=== PATIENT | male | born 1955 | race Caucasian/White ===

== ENCOUNTER 2022-08-08 17:46 | Observation (INO) ==
--- NOTE | 2022-08-08 18:31 | Emergency Department Note ---
Impression & Plan Vertebral artery stenosis, Cerebrovascular accident, Dizziness ED Provider Note NAME: CHEO DU AGE: 67 SEX: M : 1955 ARRIVES VIA: Walk-In INFORMANT: Patient ED PROVIDER(S): Alex Pink DO CHIEF COMPLAINT: dizzy, FRANCO and paraesthesia HPI: Patient is a 67-year-old male with a past medical history of multiple strokes who presents the ER for left arm paresthesias which started about 4 to 5 days ago. It goes up to the left elbow. He notes that today he started having some dizziness and some blurry vision bilaterally. He admits to a headache as well. He has some paresthesias periorally. No chest pain or shortness of breath. No nausea, vomiting, or diarrhea. No dysuria, urgency, or frequency. No other exacerbating or remitting factors. He does take Coumadin. ROS: See above HPI for pertinent positives & negatives. A total of 10 systems reviewed and were otherwise negative. PAST MEDICAL HISTORY:See Below PAST SURGICAL HISTORY:See Below FAMILY HISTORY:See Below SOCIAL HISTORY:See Below HOME MEDICATIONS:See Below ALLERGIES:See Below VITALS:See Below PHYSICAL EXAMINATION: GENERAL: Sitting up in bed, alert, well appearing, well nourished, no distress, non-toxic EYE EXAM: normal conjunctiva. PERRL and EOM's intact. OROPHARYNX: no exudate, no erythema, lips, buccal mucosa, and tongue normal and mucous membranes are moist NECK: supple, no nuchal rigidity, no adenopathy, non-tender LUNGS: Clear to auscultation. Normal chest wall mechanics HEART: no murmurs, S1 normal and S2 normal ABDOMEN: abdomen soft, non-tender, normo-active bowel sounds, no masses, no rebound or guarding. UPPER EXTREMITIES: upper extremities are grossly normal. LOWER EXTREMITIES: No pitting edema. NEURO EXAM: Normal sensorium, cranial nerves II-XII intact, normal speech, no weakness of arms, no weakness of legs. No drift. Finger to nose intact. Gross sensation intact. [id number] intact. Rapid alternating movements of upper extremities intact MEDICAL DECISION MAKING: Patient is a 67-year-old male who presents the ER for left arm paresthesias which is been present for the past 4 to 5 days associated with a headache and some dizziness. IV was established blood work was obtained. Labs show no significant leukocytosis or anemia. INR was therapeutic at 2.8. BMP along LFTs bilirubin was fairly unremarkable. Troponin was negative. COVID was negative. CTAs of the head neck as well as noncontrast of the head showed high-grade stenosis of the right vertebral artery. This was discussed with Dr. Kim from [facility]. Stroke alert was not called symptoms of been present for the past 4 to 5 days and he is on Coumadin. [facility] recommends admission and medical therapy and maximizing treatment. Allow for permissive hypertension with systolics of 180s. Recommends holding on Plavix. Will need MRI. If any new or worsening symptoms or neurology has any questions they recommended contacting [facility] or Dr. Barfield from [place] tomorrow as this may be in the future amenable to intervention if he is symptomatic or has new symptoms. Not need to be transferred tonight. Discussed with Dr. Allen for admission and further evaluation. Triage Nursing notes reviewed. Limited review of prior medical records performed Vital Signs: reviewed and remarkable for HTN Differential diagnosis: Differential Diagnosis includes but is not limited to ischemic Stroke, hemorrhagic stroke, bells palsy, mass, neoplasm, migraine headache, seizure, subarachnoid hemorrhage, TIA, and transient global amnesia. ER treatment provided: See below Diagnostics interpreted by me: ECG: Suspect cardiac rate of 53 Normal axis No PVCs noted QTC 412 Cardiac Monitoring: An order was placed for continuous cardiac monitoring. The monitor shows a rate of 55 with sinus rhythm. Laboratory studies: As stated above and show below. Imaging studies: CTs as described above Consultation(s): Discussed with [facility] as described above CTs as described above Procedures: none Critical Care: None Past Med/Surg History Social History Smoking Status: Never smoker Feels Safe at Home: Yes Allergies Allergies Allergy/AdvReac Type Severity Reaction Status Date / Time No Known Allergies Allergy Unverified 05/30/16 19:42 Home Meds Home Medications Medication Instructions Recorded Confirmed aspirin 81 mg tablet,delayed 81 mg PO QAM 08/08/22 08/08/22 release atorvastatin 40 mg tablet 40 mg PO HS 08/08/22 08/08/22 famotidine 20 mg tablet 20 mg PO BID 08/08/22 08/08/22 lisinopril 5 mg tablet 5 mg PO DAILY 08/08/22 08/08/22 warfarin 7.5 mg tablet 7.5 mg PO [id number] 08/08/22 08/08/22 warfarin 7.5 mg tablet 15 mg PO WK 08/08/22 08/08/22 Results & Data (ED) Vital Signs Vital Signs - 24 hr 08/08/22 18:01 08/08/22 20:30 Temperature 36.6 C Temperature Source Temporal Artery Scan Pulse Rate 55 L 62 Respiratory Rate 18 18 Respiratory Effort / Characteristics Non-Labored Respiratory Depth Normal Blood Pressure 164/91 H Blood Pressure Mean 115 Pulse Oximetry 98 Oxygen Delivery Method Room Air Room Air Sepsis Recent Fever Within 48 Hours No Sepsis New/Unexplained Change in Mental Status No Sepsis Action Taken by Nursing No Action Required Laboratory Data Result diagrams: 08/08/22 18:42 08/08/22 18:42 Lab Results 08/08/22 08/08/22 08/08/22 Range/Units 18:42 18:42 18:42 WBC 7.98 (4.8-10.8) K/ul RBC 5.09 (4.63-6.08) M/uL Hgb 14.9 (14.0-18.0) g/dl POC Hgb (14.0-18.0) g/dl Hct 45.3 (40.1-51.0) % POC Hct (42-52) % MCV 89.0 (80.0-100.0) fL MCH 29.3 (25.0-34.0) pg MCHC 32.9 (32.0-36.0) g/dL RDW Std Deviation 46.0 (36.4-46.3) fL RDW Coeff of Shlomo 14.1 (11.5-14.5) % Plt Count 183 (130-400) K/uL MPV 10.6 (9.4-12.4) fL Immature Gran % (Auto) 0.1 % Neut % (Auto) 70.6 % Lymph % (Auto) 18.8 % Starr % (Auto) 8.1 % Eos % (Auto) 1.6 % Baso % (Auto) 0.8 % Neut # (Auto) 5.63 (1.4-6.5) K/uL Lymph # (Auto) 1.50 (1.2-3.4) K/uL Starr # (Auto) 0.65 (0.24-0.82) K/uL Eos # (Auto) 0.13 (0-0.50) K/uL Baso # (Auto) 0.06 (0-0.2) K/uL Immature Gran # (Auto) 0.01 (0.00-0.02) K/uL PT 28.2 H (9.0-12.0) Seconds INR 2.8 H (0.9-1.1) APTT 41.2 H (21.0-31.0) Seconds PTT Ratio 1.5 POC Sodium (135-144) mmol/L Sodium 139 (136-145) mmol/L POC Potassium (3.3-5.0) mmol/L Potassium 4.2 (3.5-5.1) mmol/L POC Chloride (101-112) mmol/L Chloride 107 (98-107) mmol/L Carbon Dioxide 26 (21-32) mmol/L POC Total CO2 (24-31) mmol/L Anion Gap 6 (3-11) POC Anion Gap (16-25) mmol/L POC BUN (7-18) mg/dl BUN 18 (6-23) mg/dl Creatinine 1.31 (0.6-1.4) mg/dl POC Creatinine (0.6-1.3) mg/dl Est Cr Clr Drug Dosing 55.7 ml/min Est GFR ( Amer) 63.9 ml/min Est GFR (Non-Af Amer) 55.2 ml/min BUN/Creatinine Ratio 13.7 (10-20) Glucose 104 H (70-99(Fasting)) mg/dl POC Glucose (other) (70-99) mg/dl Calcium 9.5 (8.5-10.1) mg/dl POC Ioniz Calcium Caroline (1.12-1.32) mmol/l Magnesium 2.1 (1.7-2.4) mg/dl Total Bilirubin 0.8 (0.2-1.0) mg/dl AST 21 (13-39) U/L ALT 18 (7-52) U/L Alkaline Phosphatase 67 (34-104) U/L Troponin I High Sens 3.8 (0-20) pg/ml Total Protein 6.6 (6.0-8.3) gm/dl Albumin 4.0 (3.4-5.0) gm/dl Globulin 2.6 (2.5-4.0) gm/dl Albumin/Globulin Ratio 1.5 (0.9-2) SARS-CoV-2, RNA, NAAT (NEGATIVE) 08/08/22 08/08/22 Range/Units 18:59 19:44 WBC (4.8-10.8) K/ul RBC (4.63-6.08) M/uL Hgb (14.0-18.0) g/dl POC Hgb 15.0 (14.0-18.0) g/dl Hct (40.1-51.0) % POC Hct 44 (42-52) % MCV (80.0-100.0) fL MCH (25.0-34.0) pg MCHC (32.0-36.0) g/dL RDW Std Deviation (36.4-46.3) fL RDW Coeff of Shlomo (11.5-14.5) % Plt Count (130-400) K/uL MPV (9.4-12.4) fL Immature Gran % (Auto) % Neut % (Auto) % Lymph % (Auto) % Starr % (Auto) % Eos % (Auto) % Baso % (Auto) % Neut # (Auto) (1.4-6.5) K/uL Lymph # (Auto) (1.2-3.4) K/uL Starr # (Auto) (0.24-0.82) K/uL Eos # (Auto) (0-0.50) K/uL Baso # (Auto) (0-0.2) K/uL Immature Gran # (Auto) (0.00-0.02) K/uL PT (9.0-12.0) Seconds INR (0.9-1.1) APTT (21.0-31.0) Seconds PTT Ratio POC Sodium 140 (135-144) mmol/L Sodium (136-145) mmol/L POC Potassium 4.5 (3.3-5.0) mmol/L Potassium (3.5-5.1) mmol/L POC Chloride 106 (101-112) mmol/L Chloride (98-107) mmol/L Carbon Dioxide (21-32) mmol/L POC Total CO2 23 L (24-31) mmol/L Anion Gap (3-11) POC Anion Gap 16.0 (16-25) mmol/L POC BUN 22 H (7-18) mg/dl BUN (6-23) mg/dl Creatinine (0.6-1.4) mg/dl POC Creatinine 1.5 H (0.6-1.3) mg/dl Est Cr Clr Drug Dosing ml/min Est GFR ( Amer) ml/min Est GFR (Non-Af Amer) ml/min BUN/Creatinine Ratio (10-20) Glucose (70-99(Fasting)) mg/dl POC Glucose (other) 115 H (70-99) mg/dl Calcium (8.5-10.1) mg/dl POC Ioniz Calcium Caroline 1.19 (1.12-1.32) mmol/l Magnesium (1.7-2.4) mg/dl Total Bilirubin (0.2-1.0) mg/dl AST (13-39) U/L ALT (7-52) U/L Alkaline Phosphatase (34-104) U/L Troponin I High Sens (0-20) pg/ml Total Protein (6.0-8.3) gm/dl Albumin (3.4-5.0) gm/dl Globulin (2.5-4.0) gm/dl Albumin/Globulin Ratio (0.9-2) SARS-CoV-2, RNA, NAAT NEGATIVE (NEGATIVE) Administered Medications Sodium Chloride (Nss 1000ml) 1,000 mls @ 50 mls/hr IV .Q20H ONE Stop: 08/09/22 18:15 Last Admin: 08/08/22 22:31 Dose: 50 mls/hr Documented By: Discontinued Medications Acetaminophen (Acetaminophen 325 Mg Tab) 650 mg PO NOW STA Stop: 08/08/22 22:10 Last Admin: 08/08/22 22:32 Dose: 650 mg Documented By: Aspirin (Aspirin Chew 324 Mg) 324 mg PO NOW STA Stop: 08/08/22 18:33 Last Admin: 08/08/22 19:59 Dose: 324 mg Documented By: Sodium Chloride (Nss 1000ml) 1,000 mls @ 999 mls/hr IV .Q1H1M ONE Stop: 08/08/22 19:32 Last Infusion: 08/08/22 21:30 Dose: 0 mls/hr Documented By: Admin: 08/08/22 19:47 Dose: 999 mls/hr Documented By: Ioversol (Optiray 300 500ml) 119 ml IV ONCE ONE Stop: 08/08/22 19:16 Last Admin: 08/08/22 19:15 Dose: 119 ml Documented By: TEE Imaging Data Radiologist's Impression: Head CT 08/08/22 18:10 CT head/brain wo con CLINICAL HISTORY: 67 years-old Male with Stroke Like Symptoms. Acute strokelike symptoms. TECHNIQUE: Multiple axial CT images of the head were obtained without contrast. A dose lowering technique was utilized adhering to the principles of ALARA. CT DOSE: 1066.99 mGy.cm COMPARISON: CTA head and neck of same day FINDINGS: No acute intracranial hemorrhage, midline shift, intracranial mass, hydrocephalus, territorial ischemia or abnormal extra-axial collection. Involutional changes. White matter hypodensities suggestive of chronic microvascular ischemic disease. Cerebral vascular calcifications. The calvarium is intact. The paranasal sinuses, mastoid air cells, and middle ear cavities are clear. IMPRESSION: No acute intracranial abnormality. ACT 112: Negative or not required by law. The above report was generated using voice recognition software. It may contain grammatical, syntax or spelling errors. Electronically signed by: eTrry Frias M.D. 08/08/2022 7:46 PM Head CTA 08/08/22 18:10 CT angio neck with con, CT angio head w con CLINICAL HISTORY: 67 years-old Male with Stroke Like Symptoms. Acute strokelike symptoms COMPARISON STUDY: CTA had and neck 05/30/2016 TECHNIQUE: Following the IV administration of 119 mL of Optiray, CT angiogram of the head and neck was performed from the aortic arch to the skull apex. Images a re reviewed in the axial, sagittal, and coronal planes. 3-D MIPS images are created and assessed. IV contrast was administered without complication. All measurements were calculated based on NASCET criteria. A dose lowering technique was utilized adhering to the principles of ALARA. FINDINGS: Atherosclerosis of the thoracic aortic arch. Patency of the nominate and imaged subclavian arteries. The common carotid arteries are patent. Atherosclerosis of the carotid bulbs and proximal cervical segments of the internal carotid arteries without significant stenosis. Calcified plaque of the cavernous, clinoid and supraclinoid segments without high-grade stenosis. The middle and anterior cerebral arteries appear patent. No abnormal intracranial enhancement. The right vertebral artery is patent. Mild calcified plaque at its origin without significant stenosis. Short segment area of high-grade (greater than 70%) stenosis involves the distal V4 segment of the right vertebral artery just proximal to the confluence with the basilar artery on image 350. This finding is new from the 05/30/2016 study. There is an additional short segment focal area of high-grade stenosis (at least 70%) the mid basilar artery on image 375 which is also new from the 2016 study. There is only minimal trickle flow within portions of the diminutive left vertebral artery. No significant flow seen within the V4 segment left vertebral artery. These findings are unchanged from prior. Posterior cerebral arteries are patent. There is origin of the left posterior cerebral artery. The cerebral venous sinuses are patent. No pneumothorax. Severe pulmonary emphysema. Unremarkable soft tissues. Degenerative changes of the cervical spine. Mild mucosal thickening of the right maxillary sinus. Dental caries. IMPRESSION: 1. High-grade stenoses of the V4 segment right vertebral artery and mid basilar artery are new from 05/30/2016. 2. Diminutive left vertebral artery demonstrating areas of only minimal trickle flow is unchanged from the 05/30/2016 study. 3. Patent common and internal carotid arteries. 4. Pulmonary emphysema. ACT 112: Negative or not required by law. The above report was generated using voice recognition software. It may contain grammatical, syntax or spelling errors. Electronically signed by: Terry Frias M.D. 08/08/2022 7:46 PM Neck CTA 08/08/22 18:10 CT angio neck with con, CT angio head w con CLINICAL HISTORY: 67 years-old Male with Stroke Like Symptoms. Acute strokelike symptoms COMPARISON STUDY: CTA had and neck 05/30/2016 TECHNIQUE: Following the IV administration of 119 mL of Optiray, CT angiogram of the head and neck was performed from the aortic arch to the skull apex. Images are reviewed in the axial, sagittal, and coronal planes. 3-D MIPS images are created and assessed. IV contrast was administered without complication. All measurements were calculated based on NASCET criteria. A dose lowering technique was utilized adhering to the principles of ALARA. FINDINGS: Atherosclerosis of the thoracic aortic arch. Patency of the nominate and imaged subclavian arteries. The common carotid arteries are patent. Atherosclerosis of the carotid bulbs and proximal cervical segments of the internal carotid arteries without significant stenosis. Calcified plaque of the cavernous, clinoid and supraclinoid segments without high-grade stenosis. The middle and anterior cerebral arteries appear patent. No abnormal intracranial enhancement. The right vertebral artery is patent. Mild calcified plaque at its origin without significant stenosis. Short segment area of high-grade (greater than 70%) stenosis involves the distal V4 segment of the right vertebral artery just proximal to the confluence with the basilar artery on image 350. This finding is new from the 05/30/2016 study. There is an additional short segment focal area of high-grade stenosis (at least 70%) the mid basilar artery on image 375 which is also new from the 2016 study. There is only minimal trickle flow within portions of the diminutive left vertebral artery. No significant flow seen within the V4 segment left vertebral artery. These findings are unchanged from prior. Posterior cerebral arteries are patent. There is origin of the left posterior cerebral artery. The cerebral venous sinuses are patent. No pneumothorax. Severe pulmonary emphysema. Unremarkable soft tissues. Degenerative changes of the cervical spine. Mild mucosal thickening of the right maxillary sinus. Dental caries. IMPRESSION: 1. High-grade stenoses of the V4 segment right vertebral artery and mid basilar artery are new from 05/30/2016. 2. Diminutive left vertebral artery demonstrating areas of only minimal trickle flow is unchanged from the 05/30/2016 study. 3. Patent common and internal carotid arteries. 4. Pulmonary emphysema. ACT 112: Negative or not required by law. The above report was generated using voice recognition software. It may contain grammatical, syntax or spelling errors. Electronically signed by: Terry Frias M.D. 08/08/2022 7:46 PM Discharge Plan Visit Data Chief Complaint: TIA Symptoms Stated Complaint: NAUSEA, SWEATY, L SIDE NUMBNESS, STROKE HISTORY ED Provider: Alex Pink Discharge Problem: Vertebral artery stenosis, Cerebrovascular accident, Dizziness Forms Stand Alone Forms: My [facility] Prescriptions Prescriptions: No Action lisinopril 5 mg tablet 5 mg PO DAILY atorvastatin 40 mg tablet 40 mg PO HS aspirin [Aspir-Low] 81 mg Tablet,Delayed Release (Dr/Ec) 81 mg PO QAM famotidine 20 mg tablet 20 mg PO BID warfarin 7.5 mg tablet 7.5 mg PO [id number] Rx Instructions: TAKE 7.5 MG EVERY TUESDAY/TUESDAY/TUESDAY/TUESDAY/TUESDAY/TUESDAY. warfarin 7.5 mg tablet 15 mg PO WK Rx Instructions: TAKE TWO 7.5MG TABLETS EVERY TUESDAY. Referrals Referrals: PCP,NO [Physician] -
[2022-08-08] MEDS ORDERED: SODIUM CHLORIDE 0.9% 1000ML 1,000 ML IV ONE ×2 (18:32→22:16)
[2022-08-08] MEDS ORDERED: ASPIRIN CHEW 324 MG PO STA (18:32)
[2022-08-08 18:55] LABS: Basophils # (auto) 0.06 K/uL (0-0.2); Basophils % (auto) 0.8 %; Eosinophils # (auto) 0.13 K/uL (0-0.50); Eosinophils % (auto) 1.6 %; Hematocrit (blood only) 45.3 % (40.1-51.0); Hemoglobin 14.9 g/dl (14.0-18.0); Immature Granulocytes # (auto) 0.01 K/uL (0.00-0.02); Immature Granulocytes % (auto) 0.1 %; Lymphocytes % (auto) 18.8 %; Mean Corpuscular Hemoglobin 29.3 pg (25.0-34.0); Mean Corpuscular Hgb Conc 32.9 g/dL (32.0-36.0); Mean Platelet Volume 10.6 fL (9.4-12.4); Monocytes # (auto) 0.65 K/uL (0.24-0.82); Monocytes % (auto) 8.1 %; Neutrophils # (auto) 5.63 K/uL (1.4-6.5); Neutrophils % (auto) 70.6 %; Platelet Count 183 K/uL (130-400); RDW Coefficient of Variation 14.1 % (11.5-14.5); Red Blood Count 5.09 M/uL (4.63-6.08); White Blood Count 7.98 K/ul (4.8-10.8)
[2022-08-08 19:10] LABS: INR 2.8 (0.9-1.1); Partial Thromboplastin Ratio 1.5; Partial Thromboplastin Time 41.2 Seconds (21.0-31.0); Prothrombin Time 28.2 Seconds (9.0-12.0)
[2022-08-08 19:11] LABS: iSTAT Creatinine 1.5 mg/dl (0.6-1.3); iSTAT Ionized Calcium 1.19 mmol/l (1.12-1.32); iSTAT Potassium 4.5 mmol/L (3.3-5.0)
[2022-08-08] MEDS ORDERED: OPTIRAY 300 500mL IV ONE (19:15)
[2022-08-08 19:21] LABS: Albumin Globulin Ratio 1.5 (0.9-2); BUN Creatinine Ratio 13.7 (10-20); Bilirubin,Total 0.8 mg/dl (0.2-1.0); Calcium 9.5 mg/dl (8.5-10.1); Creatinine Clr Calc Pharmacy 55.7 ml/min; Est GFR (African American) 63.9 ml/min; Est GFR (Non-African American) 55.2 ml/min; Globulin 2.6 gm/dl (2.5-4.0); Magnesium 2.1 mg/dl (1.7-2.4); Potassium 4.2 mmol/L (3.5-5.1); Total Protein 6.6 gm/dl (6.0-8.3)
[2022-08-08 19:22] LABS: Troponin I High Sensitivity 3.8 pg/ml (0-20)
--- NOTE | 2022-08-08 19:47 | CT Scan Report ---
CT angio neck with con, CT angio head w con CLINICAL HISTORY: 67 years-old Male with Stroke Like Symptoms. Acute strokelike symptoms COMPARISON STUDY: CTA had and neck 05/30/2016 TECHNIQUE: Following the IV administration of 119 mL of Optiray, CT angiogram of the head and neck wa s performed from the aortic arch to the skull apex. Images are reviewed in the axial, sagittal, and c oronal planes. 3-D MIPS images are created and assessed. IV contrast was administered without complic ation. All measurements were calculated based on NASCET criteria. A dose lowering technique was util ized adhering to the principles of ALARA. FINDINGS: Atherosclerosis of the thoracic aortic arch. Patency of the nominate and imaged subclavian arteries. The common carotid arteries are patent. Atherosclerosis of the carotid bulbs and proximal cervical se gments of the internal carotid arteries without significant stenosis. Calcified plaque of the caverno us, clinoid and supraclinoid segments without high-grade stenosis. The middle and anterior cerebral a rteries appear patent. No abnormal intracranial enhancement. The right vertebral artery is patent. Mi ld calcified plaque at its origin without significant stenosis. Short segment area of high-grade (gre ater than 70%) stenosis involves the distal V4 segment of the right vertebral artery just proximal to the confluence with the basilar artery on image 350. This finding is new from the 05/30/2016 study. Th ere is an additional short segment focal area of high-grade stenosis (at least 70%) the mid basilar a rtery on image 375 which is also new from the 2016 study. There is only minimal trickle flow within p ortions of the diminutive left vertebral artery. No significant flow seen within the V4 segment left vertebral artery. These findings are unchanged from prior. Posterior cerebral arteries are patent. Th ere is origin of the left posterior cerebral artery. The cerebral venous sinuses are patent. No pneumothorax. Severe pulmonary emphysema. Unremarkable soft tissues. Degenerative changes of the c ervical spine. Mild mucosal thickening of the right maxillary sinus. Dental caries. IMPRESSION: 1. High-grade stenoses of the V4 segment right vertebral artery and mid basilar artery are new from . 2. Diminutive left vertebral artery demonstrating areas of only minimal trickle flow is unchanged fro m the 05/30/2016 study. 3. Patent common and internal carotid arteries. 4. Pulmonary emphysema. ACT 112: Negative or not required by law. The above report was generated using voice recognition software. It may contain grammatical, syntax o r spelling errors. Electronically signed by: Terry Frias M.D. 08/08/2022 7:46 PM
--- NOTE | 2022-08-08 19:47 | CT Scan Report ---
CT head/brain wo con CLINICAL HISTORY: 67 years-old Male with Stroke Like Symptoms. Acute strokelike symptoms. TECHNIQUE: Multiple axial CT images of the head were obtained without contrast. A dose lowering tech nique was utilized adhering to the principles of ALARA. CT DOSE: 1066.99 mGy.cm COMPARISON: CTA head and neck of same day FINDINGS: No acute intracranial hemorrhage, midline shift, intracranial mass, hydrocephalus, territorial ischem ia or abnormal extra-axial collection. Involutional changes. White matter hypodensities suggestive of chronic microvascular ischemic disease. Cerebral vascular calcifications. The calvarium is intact. The paranasal sinuses, mastoid air cells, and middle ear cavities are clear . IMPRESSION: No acute intracranial abnormality. ACT 112: Negative or not required by law. The above report was generated using voice recognition software. It may contain grammatical, syntax o r spelling errors. Electronically signed by: Terry Frias M.D. 08/08/2022 7:46 PM
[2022-08-08] MEDS ORDERED: ACETAMINOPHEN 325 MG TAB PO STA (22:09)
--- NOTE | 2022-08-08 22:10 | History & Physical Report ---
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 Permissive hypertension for now MRI, TTE for additional stroke work-up Neurology consult Re: Recurrent TIA Further management pending Neurology eval Update lipid profile and hemoglobin A1c Patient counseled regarding patient confined at [facility] July 2019 need for regular outpatient follow-up with neurologist given recurrent events. DVT prophylaxis. Coumadin INR goal between 2 and 3 Full code Patient requesting updates from providers. Ms. Jessica Rudolph, contact #[phone]. Text document was generated using CHORD voice recognition software. It may contain grammatical or spelling errors. Kindly contact undersigned for clarification of any documentation item in question. History of Present Illness Chief Complaint: Strokelike symptoms Primary Care Provider: Jorge Araya History obtained from patient and records. Medical history significant for recurrent CVA/TIA on Coumadin, PVD, AAA status post surgery, hypertension, hyperlipidemia, COPD, past tobacco abuse. 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 Patient transferred to [facility] as per neurologist recommendation. Patient has had 4 strokes/mini strokes since 2016 as per patient. Patient confined at [facility] July 2019 for TIA symptoms attributed to basilar artery occlusion presenting as paresthesias, visual changes and gait difficulty. Patient was on aspirin and Plavix at time of admission. MRI did not show acute stroke. 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 Occlusion thought to be chronic process as per documentation. Given patient's increasing frequency of posterior circulation symptoms on dual antiplatelet therapy, patient started on Coumadin along with dual antiplatelet Rx. Plavix eventually discontinued outpatient, timing of which cannot be called by patient. Recent stroke was last year leading to confinement at [facility]. Patient has not followed up with his [place] neurologist since last year's confinement. Patient has not been feeling well since last week. Some neck soreness which patient attributed to installing a special door in his basement. 5 days ago, patient noted left upper extremity tingling. Today, patient noted dizziness described as imbalance and transient blurred vision on both eyes. Achy frontal headache symptoms. Episode somewhat reminiscent of stroke episode from 2019. Patient compliant with medications. No unusual stress at home. Aspirin administered at the ER. Currently, patient symptoms all resolved except for neck discomfort. [facility] stroke specialist recommended medical management at [facility] for now. 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 Allergies Allergy/AdvReac Type Severity Reaction Status Date / Time No Known Allergies Allergy Unverified 05/30/16 19:42 Home Medications Medication Instructions Recorded Confirmed Type aspirin 81 mg tablet,delayed 81 mg PO QAM 08/08/22 08/08/22 History release atorvastatin 40 mg tablet 40 mg PO HS 08/08/22 08/08/22 History famotidine 20 mg tablet 20 mg PO BID 08/08/22 08/08/22 History lisinopril 5 mg tablet 5 mg PO DAILY 08/08/22 08/08/22 History warfarin 7.5 mg tablet 7.5 mg PO [id number] 08/08/22 08/08/22 History warfarin 7.5 mg tablet 15 mg PO WK 08/08/22 08/08/22 History Past Med/Surg History Social History Smoking Status: Former smoker Second Hand Exposure: No; Do You Dip or Chew Tobacco: No; Tobacco Cessation Education Requested by Patient: No Hx Alcohol Use: Yes Alcohol type: beer Hx Substance Use: No Preferred Language: Mohawk Communication Ability: Effective All Source Intelligence Required: No Beliefs That Will Affect Care: None Current Living Situation: Spouse Other Information That Helps Us Care for You: No Feels Safe at Home: Yes Safety Concerns: Feels Safe At This Time Assistive Devices: Glasses Review of Systems Review of Systems: As per HPI, all other systems reviewed and negative Physical Exam 2 Physical Exam: GENERAL: Comfortable, pleasant, no respiratory distress SKIN: Normal color, warm HEENT: Alopecia, bespectacled, pink palpebral conjunctivae, no ptosis, moist buccal mucosa NECK : Supple, minimal cervical tenderness CHEST : CTA, no tenderness HEART : Bradycardic, no obvious murmurs ABDOMEN: Some distention, nontender EXTREMITIES : No LE swelling/tenderness, no other conspicuous deformities noted NEUROLOGIC : Coherent, no facial asymmetry, no other gross focality Results & Data Results & Data ([facility]) Vital Signs (Past 12 Hours) Vital Signs Temp Pulse Resp BP Pulse Ox O2 Del Method 08/08/22 18:01 36.6 C 55 L 18 164/91 H 98 Room Air Laboratory Results Laboratory Results WBC 7.98 K/ul (4.8-10.8) 08/08/22 18:42 RBC 5.09 M/uL (4.63-6.08) 08/08/22 18:42 Hgb 14.9 g/dl (14.0-18.0) 08/08/22 18:42 POC Hgb 15.0 g/dl (14.0-18.0) 08/08/22 18:59 Hct 45.3 % (40.1-51.0) 08/08/22 18:42 POC Hct 44 % (42-52) 08/08/22 18:59 MCV 89.0 fL (80.0-100.0) 08/08/22 18:42 MCH 29.3 pg (25.0-34.0) 08/08/22 18:42 MCHC 32.9 g/dL (32.0-36.0) 08/08/22 18:42 RDW Std Deviation 46.0 fL (36.4-46.3) 08/08/22 18:42 RDW Coeff of Shlomo 14.1 % (11.5-14.5) 08/08/22 18:42 Plt Count 183 K/uL (130-400) 08/08/22 18:42 MPV 10.6 fL (9.4-12.4) 08/08/22 18:42 Immature Gran % (Auto) 0.1 % 08/08/22 18:42 Neut % (Auto) 70.6 % 08/08/22 18:42 Lymph % (Auto) 18.8 % 08/08/22 18:42 Nolan % (Auto) 8.1 % 08/08/22 18:42 Eos % (Auto) 1.6 % 08/08/22 18:42 Baso % (Auto) 0.8 % 08/08/22 18:42 Neut # (Auto) 5.63 K/uL (1.4-6.5) 08/08/22 18:42 Lymph # (Auto) 1.50 K/uL (1.2-3.4) 08/08/22 18:42 Nolan # (Auto) 0.65 K/uL (0.24-0.82) 08/08/22 18:42 Eos # (Auto) 0.13 K/uL (0-0.50) 08/08/22 18:42 Baso # (Auto) 0.06 K/uL (0-0.2) 08/08/22 18:42 Immature Gran # (Auto) 0.01 K/uL (0.00-0.02) 08/08/22 18:42 PT 28.2 Seconds (9.0-12.0) H 08/08/22 18:42 INR 2.8 (0.9-1.1) H 08/08/22 18:42 APTT 41.2 Seconds (21.0-31.0) H 08/08/22 18:42 PTT Ratio 1.5 08/08/22 18:42 POC Sodium 140 mmol/L (135-144) 08/08/22 18:59 Sodium 139 mmol/L (136-145) 08/08/22 18:42 POC Potassium 4.5 mmol/L (3.3-5.0) 08/08/22 18:59 Potassium 4.2 mmol/L (3.5-5.1) 08/08/22 18:42 POC Chloride 106 mmol/L (101-112) 08/08/22 18:59 Chloride 107 mmol/L (98-107) 08/08/22 18:42 Carbon Dioxide 26 mmol/L (21-32) 08/08/22 18:42 POC Total CO2 23 mmol/L (24-31) L 08/08/22 18:59 Anion Gap 6 (3-11) 08/08/22 18:42 POC Anion Gap 16.0 mmol/L (16-25) 08/08/22 18:59 POC BUN 22 mg/dl (7-18) H 08/08/22 18:59 BUN 18 mg/dl (6-23) 08/08/22 18:42 Creatinine 1.31 mg/dl (0.6-1.4) 08/08/22 18:42 POC Creatinine 1.5 mg/dl (0.6-1.3) H 08/08/22 18:59 Est Cr Clr Drug Dosing 55.7 ml/min 08/08/22 18:42 Est GFR ( Amer) 63.9 ml/min 08/08/22 18:42 Est GFR (Non-Af Amer) 55.2 ml/min 08/08/22 18:42 BUN/Creatinine Ratio 13.7 (10-20) 08/08/22 18:42 Glucose 104 mg/dl (70-99(Fasting)) H 08/08/22 18:42 POC Glucose (other) 115 mg/dl (70-99) H 08/08/22 18:59 Calcium 9.5 mg/dl (8.5-10.1) 08/08/22 18:42 POC Ioniz Calcium Caroline 1.19 mmol/l (1.12-1.32) 08/08/22 18:59 Magnesium 2.1 mg/dl (1.7-2.4) 08/08/22 18:42 Total Bilirubin 0.8 mg/dl (0.2-1.0) 08/08/22 18:42 AST 21 U/L (13-39) 08/08/22 18:42 ALT 18 U/L (7-52) 08/08/22 18:42 Alkaline Phosphatase 67 U/L (34-104) 08/08/22 18:42 Troponin I High Sens 3.8 pg/ml (0-20) 08/08/22 18:42 Total Protein 6.6 gm/dl (6.0-8.3) 08/08/22 18:42 Albumin 4.0 gm/dl (3.4-5.0) 08/08/22 18:42 Globulin 2.6 gm/dl (2.5-4.0) 08/08/22 18:42 Albumin/Globulin Ratio 1.5 (0.9-2) 08/08/22 18:42 SARS-CoV-2, RNA, NAAT NEGATIVE (NEGATIVE) 08/08/22 19:[address] 08/08/22 18:10 CT head/brain wo con CLINICAL HISTORY: 67 years-old Male with Stroke Like Symptoms. Acute strokelike symptoms. TECHNIQUE: Multiple axial CT images of the head were obtained without contrast. A dose lowering technique was utilized adhering to the principles of ALARA. CT DOSE: 1066.99 mGy.cm COMPARISON: CTA head and neck of same day FINDINGS: No acute intracranial hemorrhage, midline shift, intracranial mass, hydrocephalus, territorial ischemia or abnormal extra-axial collection. Involutional changes. White matter hypodensities suggestive of chronic microvascular ischemic disease. Cerebral vascular calcifications. The calvarium is intact. The paranasal sinuses, mastoid air cells, and middle ear cavities are clear. IMPRESSION: No acute intracranial abnormality. ACT 112: Negative or not required by law. The above report was generated using voice recognition software. It may contain grammatical, syntax or spelling errors. Electronically signed by: Terry Frias M.D. 08/08/2022 7:46 PM Head CTA 08/08/22 18:10 CT angio neck with con, CT angio head w con CLINICAL HISTORY: 67 years-old Male with Stroke Like Symptoms. Acute s trokelike symptoms COMPARISON STUDY: CTA had and neck 05/30/2016 TECHNIQUE: Following the IV administration of 119 mL of Optiray, CT angiogram of the head and neck was performed from the aortic arch to the skull apex. Images are reviewed in the axial, sagittal, and coronal planes. 3-D MIPS images are created and assessed. IV contrast was administered without complication. All measurements were calculated based on NASCET criteria. A dose lowering technique was utilized adhering to the principles of ALARA. FINDINGS: Atherosclerosis of the thoracic aortic arch. Patency of the nominate and imaged subclavian arteries. The common carotid arteries are patent. Atherosclerosis of the carotid bulbs and proximal cervical segments of the internal carotid arteries without significant stenosis. Calcified plaque of the cavernous, clinoid and supraclinoid segments without high-grade stenosis. The middle and anterior cerebral arteries appear patent. No abnormal intracranial enhancement. The right vertebral artery is patent. Mild calcified plaque at its origin without significant stenosis. Short segment area of high-grade (greater than 70%) stenosis involves the distal V4 segment of the right vertebral artery just proximal to the confluence with the basilar artery on image 350. This finding is new from the 05/30/2016 study. There is an additional short segment focal area of high-grade stenosis (at least 70%) the mid basilar artery on image 375 which is also new from the 2016 study. There is only minimal trickle flow within portions of the diminutive left vertebral artery. No significant flow seen within the V4 segment left vertebral artery. These findings are unchanged from prior. Posterior cerebral arteries are patent. There is origin of the left posterior cerebral artery. The cerebral venous sinuses are patent. No pneumothorax. Severe pulmonary emphysema. Unremarkable soft tissues. Degenerative changes of the cervical spine. Mild mucosal thickening of the right maxillary sinus. Dental caries. IMPRESSION: 1. High-grade stenoses of the V4 segment right vertebral artery and mid basilar artery are new from 05/30/2016. 2. Diminutive left vertebral artery demonstrating areas of only minimal trickle flow is unchanged from the 05/30/2016 study. 3. Patent common and internal carotid arteries. 4. Pulmonary emphysema. ACT 112: Negative or not required by law. The above report was generated using voice recognition software. It may contain grammatical, syntax or spelling errors. Electronically signed by: Terry Frias M.D. 08/08/2022 7:46 PM Neck CTA 08/08/22 18:10 CT angio neck with con, CT angio head w con CLINICAL HISTORY: 67 years-old Male with Stroke Like Symptoms. Acute strokelike symptoms COMPARISON STUDY: CTA had and neck 05/30/2016 TECHNIQUE: Following the IV administration of 119 mL of Optiray, CT angiogram of the head and neck was performed from the aortic arch to the skull apex. Images are reviewed in the axial, sagittal, and coronal planes. 3-D MIPS images are created and assessed. IV contrast was administered without complication. All measurements were calculated based on NASCET criteria. A dose lowering technique was utilized adhering to the principles of ALARA. FINDINGS: Atherosclerosis of the thoracic aortic arch. Patency of the nominate and imaged subclavian arteries. The common carotid arteries are patent. Atherosclerosis of the carotid bulbs and proximal cervical segments of the internal carotid arteries without significant stenosis. Calcified plaque of the cavernous, clin oid and supraclinoid segments without high-grade stenosis. The middle and anterior cerebral arteries appear patent. No abnormal intracranial enhancement. The right vertebral artery is patent. Mild calcified plaque at its origin without significant stenosis. Short segment area of high-grade (greater than 70%) stenosis involves the distal V4 segment of the right vertebral artery just proximal to the confluence with the basilar artery on image 350. This finding is new from the 05/30/2016 study. There is an additional short segment focal area of high-grade stenosis (at least 70%) the mid basilar artery on image 375 which is also new from the 2016 study. There is only minimal trickle flow within portions of the diminutive left vertebral artery. No significant flow seen within the V4 segment left vertebral artery. These findings are unchanged from prior. Posterior cerebral arteries are patent. There is origin of the left posterior cerebral artery. The cerebral venous sinuses are patent. No pneumothorax. Severe pulmonary emphysema. Unremarkable soft tissues. Degenerative changes of the cervical spine. Mild mucosal thickening of the right maxillary sinus. Dental caries. IMPRESSION: 1. High-grade stenoses of the V4 segment right vertebral artery and mid basilar artery are new from 05/30/2016. 2. Diminutive left vertebral artery demonstrating areas of only minimal trickle flow is unchanged from the 05/30/2016 study. 3. Patent common and internal carotid arteries. 4. Pulmonary emphysema. ACT 112: Negative or not required by law. The above report was generated using voice recognition software. It may contain grammatical, syntax or spelling errors. Electronically signed by: Terry Frias M.D. 08/08/2022 7:46 PM Diagnostic Findings EKG as per my interpretation :Rate 55, sinus bradycardia, normal axis, no ischemia
[2022-08-09] MEDS ORDERED: oxyCODONE HCL IR 5 MG TAB (IMMEDIATE RELEASE) PO PRN (02:43)
[2022-08-09] MEDS ORDERED: PHARMACIST DISCHARGE MED REC CONSULT PRN (02:43)
[2022-08-09] MEDS ORDERED: PROMETHAZINE HCL 12.5 MG in SODIUM CHLORIDE 0.9% 50 ML IV PRN (02:43)
[2022-08-09] MEDS ORDERED: ATORVASTATIN 40 MG TAB PO SCH (02:43)
[2022-08-09] MEDS ORDERED: LORazepam 0.5 MG TAB PO PRN (02:43)
[2022-08-09] MEDS ORDERED: ACETAMINOPHEN 325 MG TAB PO PRN (02:43)
[2022-08-09] MEDS ORDERED: CLOPIDOGREL BISULFATE 75 MG TAB PO SCH (03:15)
[2022-08-09 06:34] LABS: Basophils # (auto) 0.05 K/uL (0-0.2); Basophils % (auto) 0.8 %; Eosinophils # (auto) 0.19 K/uL (0-0.50); Eosinophils % (auto) 3.1 %; Hematocrit (blood only) 41.7 % (40.1-51.0); Hemoglobin 13.6 g/dl (14.0-18.0); Immature Granulocytes # (auto) 0.01 K/uL (0.00-0.02); Immature Granulocytes % (auto) 0.2 %; Lymphocytes # (auto) 1.96 K/uL (1.2-3.4); Lymphocytes % (auto) 31.9 %; Mean Corpuscular Hemoglobin 29.3 pg (25.0-34.0); Mean Corpuscular Hgb Conc 32.6 g/dL (32.0-36.0); Mean Corpuscular Volume 89.9 fL (80.0-100.0); Mean Platelet Volume 10.9 fL (9.4-12.4); Monocytes # (auto) 0.69 K/uL (0.24-0.82); Monocytes % (auto) 11.2 %; Neutrophils # (auto) 3.24 K/uL (1.4-6.5); Neutrophils % (auto) 52.8 %; Platelet Count 165 K/uL (130-400); RDW Coefficient of Variation 14.3 % (11.5-14.5); RDW Standard Deviation 47.3 fL (36.4-46.3); Red Blood Count 4.64 M/uL (4.63-6.08); White Blood Count 6.14 K/ul (4.8-10.8)
[2022-08-09 07:00] LABS: BUN Creatinine Ratio 16.7 (10-20); Calcium 8.9 mg/dl (8.5-10.1); Creatinine Clr Calc Pharmacy 65.1 ml/min; Est GFR (African American) 75.6 ml/min; Est GFR (Non-African American) 65.3 ml/min; Potassium 4.3 mmol/L (3.5-5.1)
[2022-08-09 07:03] LABS: Estimated Average Glucose 123 mg/dl; Hemoglobin A1C 5.9 % (4.5-5.6); INR 3.1 (0.9-1.1); Prothrombin Time 30.9 Seconds (9.0-12.0)
[2022-08-09] MEDS ORDERED: ASPIRIN 81 MG ECTAB PO SCH (09:00)
[2022-08-09] MEDS ORDERED: FAMOTIDINE 20 MG TAB PO SCH (09:00)
--- NOTE | 2022-08-09 09:49 | Magnetic Resonance Report ---
MRI OF THE BRAIN WITHOUT CONTRAST CLINICAL HISTORY: Transient ischemic attack. Left arm paresthesias. COMPARISON STUDY: Head CT and CTA of the head August 08, 2022. TECHNIQUE: Utilizing a 1.5 Suzan magnet and dedicated coil, multiplanar, multiecho imaging of the bra in was performed without IV contrast. FINDINGS: There are no foci of restricted diffusion to suggest acute infarct. No acute intracranial h emorrhage, midline shift or mass effect is present. Ventricular system is unremarkable. Basal cistern s are patent. Flow-voids for the major intracranial vessels are present. No intracranial masses ident ified on this unenhanced exam. White matter T2 hyperintense foci favor mild small vessel disease. Eloy varial signal is within normal limits. IMPRESSION: No acute intracranial findings. ACT 112: Negative or not required by law. Electronically signed by: Keith Echevarria M.D. 08/09/2022 9:48 AM
--- NOTE | 2022-08-09 12:18 | Neurology Consultation ---
Date of Consultation August 09, 2022 Assessment & Plan (1) Vertebral basilar insufficiency: (2) Vertebral artery stenosis: (3) Basilar artery stenosis: (4) Hypertension: Plan this patient had an episode of bilateral blurry vision, vertigo and lightheadedness, left upper extremity tingling, and nausea August 08. He has had similar episodes in the past. CT angiography of the head and neck revealed significant right vertebral and mid basilar artery stenosis, new compared to his 1st stroke like event May of 2016. The left vertebral is small in diameter, which is the same as 2016. He has been on warfarin and 81 mg aspirin since his original event May of 2016. On neurologic examination currently has no focal findings, meningeal signs, or encephalopathy. Subjectively he is asymptomatic and back to baseline MRI of the brain showed no new stroke but he does have some old mild nonspecific small vessel ischemic disease. The patient has some neck pain and some recent tingling in the left upper extremity without other symptoms. This could be a cervical radiculopathy. Overall, therefore, I believe this patient had vertebrobasilar insufficiency from his vascular stenoses and likely has had these symptoms stereotypically in the past. Recommendations: 1. Consider switching 81 mg aspirin to 75 mg clopidogrel daily. Continue warfarin as before. clopidogrel may do a better job than aspirin to preventing symptoms and might actually open up some of the stenoses Over time. 2. Continue atorvastatin current dose. There is no indication based on his lipid parameters to increase this dose. 3. Control blood pressure as you are doing, aiming for a mean arterial pressure of 95-100. 4. consider EMG nerve conduction studies of the left upper extremity as an outpatient to evaluate for radiculopathy. 5. I can follow this patient as an outpatient ( to 3 weeks with PA in the office) Overall, I spent a total of 90 minutes with this case including review of records, review of MRI films, direct evaluation of the patient at bedside, and discussion of the case with the patient and RN at bedside, and Dr. Gomez including differential diagnosis and treatment options. History of Present Illness Reason for Consultation: Patient is a 67-year-old, who I was asked to see at the request of Dr. Ram, for neurologic consultation regarding possible stroke. Requesting Physician: Dr. Ram Attending Physician: Sienna Gomez MD History of Present Illness This patient has a history of previous stroke May 30, 2016. He had the sudden onset of nausea, vomiting, diaphoresis, dizziness and left upper extremity tingl ing. The symptoms have been occurring on and off for several weeks lasting minutes at a time. He felt weak in general but had no focal weakness. CT scan of the head showed no acute change. 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 He had emphysema on lungs. CTA of the head neck revealed normal carotid arteries, a widely patent right vertebral artery and a small thrombosed left vertebral artery. There were no aneurysms. He was sent to [facility] apparently was put on warfarin and 81 mg aspirin, which she has been on ever since. Over the last 4 years he has had a few episodes including 2 back to back about a year ago consisting of left upper extremity numbness and tingling, blurry vision and some lightheadedness and vertigo. Apparently he did not go to the emergency room for these. He has a history of dyslipidemia on 40 mg HR a statin as well as hypertension on lisinopril. On August 08, he had finished sitting and watching the [employer] on TV, when around 5:00 p.m., at the end of the game, he had the sudden onset of blurry vision in both eyes, numbness and tingling in his left upper extremity from the elbow to the hand, and a spinning lightheaded sensation. He had nausea without vomiting. He had no tinnitus or hearing loss. He arrived to the emergency room at 6:01 p.m. with a temperature 36.6, pulse 55 and regular, respiratory rate 18, blood pressure 164/91, and O2 saturation 98%. His neurologic examination was nonfocal with no meningeal signs or encephalopathy, but he did have a mild headache. CBC was unremarkable. Chem profile was unremarkable. CT scan of the head was unremarkable. CT angiography of the head neck revealed high-grade stenosis in the right V4 segment and mid basilar artery. There was a diminished left vertebral artery as before. The internal carotid arteries were unremarkable. MRI of the brain showed mild old small vessel ischemia but no acute stroke. I reviewed these films. Echocardiogram revealed no significant abnormalities. Hemoglobin A1c was 5.9 and total cholesterol is 120. Triglycerides were 90. Today the patient feels asymptomatic with no dizziness, vision issues, headache, numbness or tingling, or other issues. 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 he does a lot a heavy lifting From time to time in his jobs. He does have some neck pain. He has had some numbness and tingling intermittently in his left upper extremity for 4-5 days on and off lasting an hour at a time. Allergies Allergy/AdvReac Type Severity Reaction Status Date / Time No Known Allergies Allergy Unverified 05/30/16 19:42 Home Medications Medication Instructions Recorded Confirmed Type aspirin 81 mg tablet,delayed 81 mg PO QAM 08/08/22 08/08/22 History release atorvastatin 40 mg tablet 40 mg PO HS 08/08/22 08/08/22 History famotidine 20 mg tablet 20 mg PO BID 08/08/22 08/08/22 History lisinopril 5 mg tablet 5 mg PO DAILY 08/08/22 08/08/22 History warfarin 7.5 mg tablet 7.5 mg PO [id number] 08/08/22 08/08/22 History warfarin 7.5 mg tablet 15 mg PO WK 08/08/22 08/08/22 History Patient History Medical History Dyslipidemia Hypertension Surgical History History of hernia repair S/P AAA repair Family History Mother , age 72 of complications of meningitis. 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 Other Information That Helps Us Care for You: No Feels Safe at Home: Yes Safety Concerns: Feels Safe At This Time Assistive Devices: Glasses Review of Systems Constitutional: no fever, no fatigue and no weakness Eyes: no diplopia, no eye pain and no worsening vision Ear, Nose, Mouth, Throat: no ear pain, no tinnitus, no hearing loss, no di zziness, no snoring, no hoarseness and no dysphagia Respiratory: no cough and no dyspnea Cardiovascular: no chest pain, no palpitations and no lightheadedness Gastrointestinal: no abdominal pain, no nausea and no vomiting Musculoskeletal: no back pain, no neck pain, no radicular pain, no joint pain and no myalgia Integumentary: no rash and no lesions Neurologic: no gait abnormality, no localized weakness, no generalized weakness, no tingling, no numbness, no tremor(s), no abnormal movements, no headache(s), no abnormal speech, no confusion and no memory loss Psychiatric: no depression, no irritability, no anxiety, no difficulty concentrating, no confusion and no hallucinations Endocrine: no fatigue and no flushing Hematologic / Lymphatic: no easy bleeding and no easy bruising Allergy / Immunological: no urticaria and no problem reported Exam (Neuro) Physical Exam: The patient is right-handed. The patient is awake, alert, and attentive. Speech is normal without any aphasia or dysarthria. The patient can name objects, repeat phrases, and has normal spontaneous speech. Mentation and thought processes are intact, with orientation to person, place and time, and normal fund of knowledge. Attention and concentration are normal. Mood and affect are normal and appropriate. General appearance and grooming are normal. Short and long-term memory are intact. Pupils are 3mm bilaterally and reactive to light. Extraocular eye muscles are intact without nystagmus. Visual acuity and visual chris seem normal grossly to confrontation. There are no deficits to sensation in the face in all 3 distributions of the fifth cranial nerve bilaterally. Corneal reflexes are positive bilaterally. Facial strength and symmetry was normal bilaterally. Hearing seems normal bilaterally. Palate moves well without asymmetry. There is normal sternocleidomastoid and trapezius (shoulder shrug) strength bilaterally. Tongue is midline with good strength bilaterally. Neck has a full range of motion without discomfort. There are no cervical bruits bilaterally. There are no cranial or ocular bruits. Heart is without murmur. There is a regular rhythm and rate. Cervical, thoracic, and lumbar spine are nontender to palpation. Gait is narrow based, with good arm swing, turns, and stance. Balance is normal eyes open or closed. With outstretched arms there is no drift. There are no resting, postural, or action tremors. There is no ataxia with finger to nose testing. There is good facility in the hands. No other abnormal involuntary movements are noted. Motor strength is 5/5 diffusely in the arms bilaterally including deltoids, biceps, triceps, brachioradialis, wrist flexors and extensors, wash test checker, and intrinsic hand muscles. Motor strength is 5/5 diffusely in the legs bilaterally including hip flexors, quadriceps, hamstrings, gastrocnemius, tibialis anterior, tibialis posterior, and Peroneii muscles. Toe extensors are normal and there is good bulk in the extensor digitorum brevis muscles bilaterally. The limbs have good tone without rigidity or spasticity. There is no atrophy noted in the muscles. Muscle bulk is normal, there is no tenderness to palpation, no myotonia to percussion, and no fasciculations seen. Sensory examination is intact to touch and pin throughout all 4 limbs diffusely. Reflexes are 1/4 in the biceps, triceps, brachioradialis, quadriceps, and Achilles tendons bilaterally. There is no clonus bilaterally. Toes are downgoing with plantar stimulation on the left and upgoing with plantar stimulation on the right Peripheral pulses are present and of normal quality distally in all 4 limbs. There is no peripheral edema noted in the limbs. Results & Data ([facility]) Vital Signs (Past 12 Hours) Vital Signs Temp Pulse Pulse Resp BP BP Pulse Ox 08/09/22 11:46 36.6 C 62 18 185/97 H 98 08/09/22 09:56 62 08/09/22 02:17 61 08/09/22 03:00 36.4 C L 49 L 16 166/90 H 98 08/09/22 02:43 08/09/22 01:30 46 L 14 131/78 95 08/09/22 00:30 52 L 15 165/89 H 96 Pulse Ox O2 Del Method O2 Del Method 08/09/22 11:46 Room Air 08/09/22 09:56 08/09/22 02:17 08/09/22 03:00 Room Air 08/09/22 02:43 98 Room Air 08/09/22 01:30 Room Air 08/09/22 00:30 Room Air PG Care Time/CCT Total # of Minutes Spent Total Time Spent with Patient: Total time spent is greater than 50% in coordination of care (as documented) at patient's floor/unit and/or counseling patient: Coding Level of Care Code 59293 Initial Inpt Care Lvl 3 Diagnoses Vertebral basilar insufficiency G45.0 Vertebral artery stenosis I65.09 Basilar artery stenosis I65.1 Hypertension I10 Time Spent (min) 90
[2022-08-09] MEDS ORDERED: lisinopril 10 MG TAB PO ONE (14:27)
[2022-08-09] MEDS ORDERED: lisinopril 5 MG TAB PO ONE ×2 (14:27→14:36)
--- NOTE | 2022-08-09 16:19 | Electrocardiogram Report ---
Test Reason : Blood Pressure : / mmHG Vent. Rate : 053 BPM Atrial Rate : 053 BPM P-R Int : 130 ms QRS Dur : 082 ms QT Int : 440 ms P-R-T Axes : 051 055 054 degrees QTc Int : 412 ms Sinus bradycardia Otherwise normal ECG When compared with ECG of 30-MAY-2016 21:28, QT has shortened Confirmed by Mike Thorne ([id number]) on 08/09/2022 4:19:18 PM Referred By: REFERRED SELF Confirmed By:Mike Thorne
--- NOTE | 2022-08-09 18:00 | Discharge Summary ---
Date of Service August 09, 2022 Admission HPI Per Admitting Provider History obtained from patient and records. Medical history significant for recurrent CVA/TIA on Coumadin, PVD, AAA status post surgery, hypertension, hyperlipidemia, COPD, past tobacco abuse. Last [facility] confinement 2015 for left vertebral artery thrombosis presenting as dizziness symptoms. [place] [facility] [place]. Patient has had 4 strokes/mini strokes since 2016 as per patient. Patient confined at [facility] July 2019 for TIA symptoms attributed to basilar artery occlusion presenting as paresthesias, visual changes and gait difficulty. Patient was on aspirin and Plavix at time of admission. MRI did not show acute stroke. 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 Occlusion thought to be chronic process as per documentation. Given patient's increasing frequency of posterior circulation symptoms on dual antiplatelet therapy, patient started on Coumadin along with dual antiplatelet Rx. Plavix eventually discontinued outpatient, timing of which cannot be called by patient. Recent stroke was last year leading to confinement at [facility]. Patient has not followed up with his [place] neurologist since last year's confinement. Patient has not been feeling well since last week. Some neck soreness which patient attributed to installing a special door in his basement. 5 days ago, patient noted left upper extremity tingling. Today, patient noted dizziness described as imbalance and transient blurred vision on both eyes. Achy frontal headache symptoms. Episode somewhat reminiscent of stroke episode from 2019. Patient compliant with medications. No unusual stress at home. Aspirin administered at the ER. Currently, patient symptoms all resolved except for neck discomfort. [facility] [place] recommended medical management at [facility] for now. 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 Admission Exam Per Admitting Provider GENERAL: Comfortable, pleasant, no respiratory distress SKIN: Normal color, warm HEENT: Alopecia, bespectacled, pink palpebral conjunctivae, no ptosis, moist buccal mucosa NECK : Supple, minimal cervical tenderness CHEST : CTA, no tenderness HEART : Bradycardic, no obvious murmurs ABDOMEN: Some distention, nontender EXTREMITIES : No LE swelling/tenderness, no other conspicuous deformities noted NEUROLOGIC : Coherent, no facial asymmetry, no other gross focality Principal Diagnosis (1) Vertebral basilar insufficiency: (2) Vertebral artery stenosis: (3) Basilar artery stenosis: (4) Hypertension: (5) Dizziness Discharge Exam General- No acute distress Head- atraumatic Eyes- PERRL, EOMI, ENT- oropharynx clear Neck- supple, no JVD Lungs- clear to auscultation Heart- regular rhythm; no murmur Abdomen- normal bowel sounds, soft, nontender Extremities- no calf tenderness Neuro- alert, oriented x 3; PERRL, EOMI; no facial palsy; no dysarthria Skin- warm & dry Discharge Data Allergies Allergy/AdvReac Type Severity Reaction Status Date / Time No Known Allergies Allergy Unverified 05/30/16 19:42 Consultations 08/08/22 20:37 ED Decision to Admit Stat 08/09/22 02:43 Consult Neurology Routine Ordered Studies 08/08/22 18:10 CT angio head w con Stat CT angio neck with con Stat CT head/brain wo con Stat 08/09/22 02:43 MR brain wo con Routine Laboratory Results WBC 6.14 K/ul (4.8-10.8) 08/09/22 05:37 RBC 4.64 M/uL (4.63-6.08) 08/09/22 05:37 Hgb 13.6 g/dl (14.0-18.0) L 08/09/22 05:37 POC Hgb 15.0 g/dl (14.0-18.0) 08/08/22 18:59 Hct 41.7 % (40.1-51.0) 08/09/22 05:37 POC Hct 44 % (42-52) 08/08/22 18:59 MCV 89.9 fL (80.0-100.0) 08/09/22 05:37 MCH 29.3 pg (25.0-34.0) 08/09/22 05:37 MCHC 32.6 g/dL (32.0-36.0) 08/09/22 05:37 RDW Std Deviation 47.3 fL (36.4-46.3) H 08/09/22 05:37 RDW Coeff of Shlomo 14.3 % (11.5-14.5) 08/09/22 05:37 Plt Count 165 K/uL (130-400) 08/09/22 05:37 MPV 10.9 fL (9.4-12.4) 08/09/22 05:37 Immature Gran % (Auto) 0.2 % 08/09/22 05:37 Neut % (Auto) 52.8 % 08/09/22 05:37 Lymph % (Auto) 31.9 % 08/09/22 05:37 [place] % (Auto) 11.2 % 08/09/22 05:37 Eos % (Auto) 3.1 % 08/09/22 05:37 Baso % (Auto) 0.8 % 08/09/22 05:37 Neut # (Auto) 3.24 K/uL (1.4-6.5) 08/09/22 05:37 Lymph # (Auto) 1.96 K/uL (1.2-3.4) 08/09/22 05:37 [place] # (Auto) 0.69 K/uL (0.24-0.82) 08/09/22 05:37 Eos # (Auto) 0.19 K/uL (0-0.50) 08/09/22 05:37 Baso # (Auto) 0.05 K/uL (0-0.2) 08/09/22 05:37 Immature Gran # (Auto) 0.01 K/uL (0.00-0.02) 08/09/22 05:37 PT 30.9 Seconds (9.0-12.0) H 08/09/22 05:37 INR 3.1 (0.9-1.1) H 08/09/22 05:37 APTT 41.2 Seconds (21.0-31.0) H 08/08/22 18:42 PTT Ratio 1.5 08/08/22 18:42 POC Sodium 140 mmol/L (135-144) 08/08/22 18:59 Sodium 139 mmol/L (136-145) 08/09/22 05:37 POC Potassium 4.5 mmol/L (3.3-5.0) 08/08/22 18:59 Potassium 4.3 mmol/L (3.5-5.1) 08/09/22 05:37 POC Chloride 106 mmol/L (101-112) 08/08/22 18:59 Chloride 109 mmol/L (98-107) H 08/09/22 05:37 Carbon Dioxide 25 mmol/L (21-32) 08/09/22 05:37 POC Total CO2 23 mmol/L (24-31) L 08/08/22 18:59 Anion Gap 5 (3-11) 08/09/22 05:37 POC Anion Gap 16.0 mmol/L (16-25) 08/08/22 18:59 POC BUN 22 mg/dl (7-18) H 08/08/22 18:59 BUN 19 mg/dl (6-23) 08/09/22 05:37 Creatinine 1.14 mg/dl (0.6-1.4) 08/09/22 05:37 POC Creatinine 1.5 mg/dl (0.6-1.3) H 08/08/22 18:59 Est Cr Clr Drug Dosing 65.1 ml/min 08/09/22 05:37 Est GFR ( Amer) 75.6 ml/min 08/09/22 05:37 Est GFR (Non-Af Amer) 65.3 ml/min 08/09/22 05:37 BUN/Creatinine Ratio 16.7 (10-20) 08/09/22 05:37 Glucose 97 mg/dl (70-99(Fasting)) 08/09/22 05:37 POC Glucose (other) 115 mg/dl (70-99) H 08/08/22 18:59 Estimat Average Glucose 123 mg/dl 08/09/22 05:37 Hemoglobin A1c 5.9 % (4.5-5.6) H 08/09/22 05:37 Calcium 8.9 mg/dl (8.5-10.1) 08/09/22 05:37 POC Ioniz Calcium Caroline 1.19 mmol/l (1.12-1.32) 08/08/22 18:59 Magnesium 2.1 mg/dl (1.7-2.4) 08/08/22 18:42 Total Bilirubin 0.8 mg/dl (0.2-1.0) 08/08/22 18:42 AST 21 U/L (13-39) 08/08/22 18:42 ALT 18 U/L (7-52) 08/08/22 18:42 Alkaline Phosphatase 67 U/L (34-104) 08/08/22 18:42 Troponin I High Sens 3.8 pg/ml (0-20) 08/08/22 18:42 Total Protein 6.6 gm/dl (6.0-8.3) 08/08/22 18:42 Albumin 4.0 gm/dl (3.4-5.0) 08/08/22 18:42 Globulin 2.6 gm/dl (2.5-4.0) 08/08/22 18:42 Albumin/Globulin Ratio 1.5 (0.9-2) 08/08/22 18:42 Triglycerides 90 mg/dl (0-150) 08/09/22 05:37 Cholesterol 120 mg/dl (0-200) 08/09/22 05:37 LDL Cholesterol, Calc 62 mg/dl 08/09/22 05:37 VLDL Cholesterol, Calc 18 mg/dl (0-30) 08/09/22 05:37 HDL Cholesterol 40 mg/dl 08/09/22 05:37 Cholesterol/HDL Ratio 3.0 (0-5) 08/09/22 05:37 TSH 1.465 uIu/ml (0.300-4.500) 08/08/22 18:42 SARS-CoV-2, RNA, NAAT NEGATIVE (NEGATIVE) 08/08/22 19:[address] 08/08/22 18:10 CT head/brain wo con CLINICAL HISTORY: 67 years-old Male with Stroke Like Symptoms. Acute strokelike symptoms. TECHNIQUE: Multiple axial CT images of the head were obtained without contrast. A dose lowering technique was utilized adhering to the principles of ALARA. CT DOSE: 1066.99 mGy.cm COMPARISON: CTA head and neck of same day FINDINGS: No acute intracranial hemorrhage, midline shift, intracranial mass, hydrocephalus, territorial ischemia or abnormal extra-axial collection. Involutional changes. White matter hypodensities suggestive of chronic microvascular ischemic disease. Cerebral vascular calcifications. The calvarium is intact. The paranasal sinuses, mastoid air cells, and middle ear cavities are clear. IMPRESSION: No acute intracranial abnormality. ACT 112: Negative or not required by law. The above report was generated using voice recognition software. It may contain grammatical, syntax or spelling errors. Electronically signed by: Terry Frias M.D. 08/08/2022 7:46 PM Head CTA 08/08/22 18:10 CT angio neck with con, CT angio head w con CLINICAL HISTORY: 67 years-old Male with Stroke Like Symptoms. Acute strokelike symptoms COMPARISON STUDY: CTA had and neck 05/30/2016 TECHNIQUE: Following the IV administration of 119 mL of Optiray, CT angiogram of the head and neck was performed from the aortic arch to the skull apex. Images are reviewed in the axial, sagittal, and coronal planes. 3-D MIPS images are created and assessed. IV contrast was administered without complication. All measurements were calculated based on NASCET criteria. A dose lowering technique was utilized adhering to the principles of ALARA. FINDINGS: Atherosclerosis of the thoracic aortic arch. Patency of the nominate and imaged subclavian arteries. The common carotid arteries are patent. Atherosclerosis of the carotid bulbs and proximal cervical segments of the internal carotid arteries without significant stenosis. Calcified plaque of the cavernous, clinoi d and supraclinoid segments without high-grade stenosis. The middle and anterior cerebral arteries appear patent. No abnormal intracranial enhancement. The right vertebral artery is patent. Mild calcified plaque at its origin without significant stenosis. Short segment area of high-grade (greater than 70%) stenosis involves the distal V4 segment of the right vertebral artery just proximal to the confluence with the basilar artery on image 350. This finding is new from the 05/30/2016 study. There is an additional short segment focal area of high-grade stenosis (at least 70%) the mid basilar artery on image 375 which is also new from the 2016 study. There is only minimal trickle flow within portions of the diminutive left vertebral artery. No significant flow seen within the V4 segment left vertebral artery. These findings are unchanged from prior. Posterior cerebral arteries are patent. There is origin of the left posterior cerebral artery. The cerebral venous sinuses are patent. No pneumothorax. Severe pulmonary emphysema. Unremarkable soft tissues. Degenerative changes of the cervical spine. Mild mucosal thickening of the right maxillary sinus. Dental caries. IMPRESSION: 1. High-grade stenoses of the V4 segment right vertebral artery and mid basilar artery are new from 05/30/2016. 2. Diminutive left vertebral artery demonstrating areas of only minimal trickle flow is unchanged from the 05/30/2016 study. 3. Patent common and internal carotid arteries. 4. Pulmonary emphysema. ACT 112: Negative or not required by law. The above report was generated using voice recognition software. It may contain grammatical, syntax or spelling errors. Electronically signed by: Terry Frias M.D. 08/08/2022 7:46 PM Neck CTA 08/08/22 18:10 CT angio neck with con, CT angio head w con CLINICAL HISTORY: 67 years-old Male with Stroke Like Symptoms. Acute strokelike symptoms COMPARISON STUDY: CTA had and neck 05/30/2016 TECHNIQUE: Following the IV administration of 119 mL of Optiray, CT angiogram of the head and neck was performed from the aortic arch to the skull apex. Images are reviewed in the axial, sagittal, and coronal planes. 3-D MIPS images are created and assessed. IV contrast was administered without complication. All measurements were calculated based on NASCET criteria. A dose lowering technique was utilized adhering to the principles of ALARA. FINDINGS: Atherosclerosis of the thoracic aortic arch. Patency of the nominate and imaged subclavian arteries. The common carotid arteries are patent. Atherosclerosis of the carotid bulbs and proximal cervical segments of the internal carotid arteries without significant stenosis. Calcified plaque of the cavernous, clinoid and supraclinoid segments without high-grade stenosis. The middle and anterior cerebral arteries appear patent. No abnormal intracranial enhancement. The right vertebral artery is patent. Mild calcified plaque at its origin without significant stenosis. Short segment area of high-grade (greater than 70%) stenosis involves the distal V4 segment of the right vertebral artery just proximal to the confluence with the basilar artery on image 350. This finding is new from the 05/30/2016 study. There is an additional short segment focal area of high-grade stenosis (at least 70%) the mid basilar artery on image 375 which is also new from the 2016 study. There is only minimal trickle flow within portions of the diminutive left vertebral artery. No significant flow seen within the V4 segment left vertebral artery. These findings are unchanged from prior. Posterior cerebral arteries are patent. There is origin of the left posterior cerebral artery. The cerebral venous sinuses are patent. No pneumothorax. Severe pulmonary emphysema. Unremarkable soft tissues. Degenerative changes of the cervical spine. Mild mucosal thickening of the right maxillary sinus. Dental caries. IMPRESSION: 1. High-grade stenoses of the V4 segment right vertebral artery and mid basilar artery are new from 05/30/2016. 2. Diminutive left vertebral artery demonstrating areas of only minimal trickle flow is unchanged from the 05/30/2016 study. 3. Patent common and internal carotid arteries. 4. Pulmonary emphysema. ACT 112: Negative or not required by law. The above report was generated using voice recognition software. It may contain grammatical, syntax or spelling errors. Electronically signed by: Terry Frias M.D. 08/08/2022 7:46 PM Brain MRI 08/09/22 02:43 MRI OF THE BRAIN WITHOUT CONTRAST CLINICAL HISTORY: Transient ischemic attack. Left arm paresthesias. COMPARISON STUDY: Head CT and CTA of the head August 08, 2022. TECHNIQUE: Utilizing a 1.5 Suzan magnet and dedicated coil, multiplanar, multiecho imaging of the brain was performed without IV contrast. FINDINGS: There are no foci of restricted diffusion to suggest acute infarct. No acute intracranial hemorrhage, midline shift or mass effect is present. Ventricular system is unremarkable. Basal cisterns are patent. Flow-voids for the major intracranial vessels are present. No intracranial masses identified on this unenhanced exam. White matter T2 hyperintense foci favor mild small vessel disease. Calvarial signal is within normal limits. IMPRESSION: No acute intracranial findings. ACT 112: Negative or not required by law. Electronically signed by: Keith Echevarria M.D. 08/09/2022 9:48 AM Hospital Course (1) Stroke-like symptom: Possible related to TIA vs Vertebral basilar insufficience Present on admission bilateral blurry vision, vertigo and lightheadedness, left upper extremity tingling, and nausea CT head showed no acute intracranial abnormality. MRI head showed no acute intracranial abnormality. CTA head/neck showed High-grade stenoses of the V4 segment right vertebral artery and mid basilar artery are new from 05/30/2016. ECHO showed normal LV systolic function with EF 60-65. No evidence intracardiac shunt at rest Neuro on board recommended to discontinue aspirin and started on Plavix. Will continue warfarin Continue blood pressure control with a mean arterial pressure of 95-100 as per neuro consider EMG nerve conduction studies of the left upper extremity as an outpatient to evaluate for radiculopathy. PT/OT eval Follow up with Carlyle robbins as an outpatient in 3 weeks Continue monitor closely Hypertension Continue blood pressure control with a mean arterial pressure of 95-100 as per neuro Continue Lisinopril 10mg daily hx PVD/AAA status post surgery Continue statin and coumadin. Plavix added hyperlipidemia Continue statin Fall precaution DVT px on coumadin with INR 3.1 Disposition Will discharge home today Total Time Total Time Spent Total Time Spent (In Minutes): 35 minutes Discharge Plan Discharge Items Patient Disposition: Home - Self-Care Reason For Visit: TIA Discharge Diagnosis: (1) Vertebral basilar insufficiency: (2) Vertebral artery stenosis: (3) Basilar artery stenosis: (4) Hypertension: (5) Dizziness Activity: Resume your previous activity Non-emergency contact: Primary Care Provider and Neurologist Call non-emergency contact if: you have any medication questions Follow-up/Referrals: Jorge Araya D.O. [Primary Care Provider] - Diet: Heart Healthy Addtl Attending Provider Instructions: Follow up with your primary care provider Dr. Araya within 1 week Follow up with [facility]y dr. Cardona or any of his colleagues in 3 weeks (please call for the appointment) Follow up with your coumadin clinic to continue monitor your PT/INR Continue monitor your blood pressure and bring your blood pressure log at your next follow appointment with your provider Your provider will continue adjust the Lisinopil if your blood pressure is not at goal (MAP between 95-100 for your provider reference) Fall precaution consider EMG nerve conduction studies of the left upper extremity as an outpatient to evaluate for tingling Aspirin 81mg discontinued Starting on Plavix 81mg daily Lisinopril increase to 10mg daily Seek medical attention if your symptoms reoccur Pending Studies at Discharge: No Stand-Alone Forms: My [facility], Smoking Cessation Medications and DC Order Prescriptions: New clopidogrel [Plavix] 75 mg tablet 75 mg PO DAILY Qty: 30 0RF lisinopril 10 mg tablet 10 mg PO DAILY Qty: 30 0RF Continued atorvastatin 40 mg tablet 40 mg PO HS famotidine 20 mg tablet 20 mg PO BID warfarin 7.5 mg tablet 7.5 mg PO [id number] Rx Instructions: TAKE 7.5 MG EVERY TUESDAY/TUESDAY/TUESDAY/TUESDAY/TUESDAY/TUESDAY. warfarin 7.5 mg tablet 15 mg PO WK Rx Instructions: TAKE TWO 7.5MG TABLETS EVERY TUESDAY. Discontinued lisinopril 5 mg tablet 5 mg PO DAILY aspirin [Aspir-Low] 81 mg Tablet,Delayed Release (Dr/Ec) 81 mg PO QAM Discharge Orders: Discharge Order (Routine); Ordered 08/09/22 Ordered By: Sienna Gomez Admission Data Admit Date/Time: 08/08/22 22:11 Attending Provider: Sienna Gomez Admit Provider: Harman Ram Primary Care Provider: Jorge Araya Other Providers: Harman Ram ; Wilbert Cradona Other Interventions: Discharge Summary Assessment (RN) Last Done: 08/09/22 17:17
[2022-08-10] MEDS ORDERED: lisinopril 5 MG TAB PO SCH (09:00)
== END 2022-08-09 18:46 | disposition home or self-care (01) | DRG 69 ==
LOC: ED 17:46 → INTOOBSV 22:11 → 2N 08-09

== ENCOUNTER 2024-08-25 04:45 | Observation (INO) ==
--- NOTE | 2024-08-25 05:14 | Emergency Department Note ---
Impression & Plan Stroke-like symptom ED Provider Note ED Provider Note NAME: CHEO DU AGE:69 SEX: Male : 1955 ARRIVES VIA: Private vehicle INFORMANT: Patient ED PROVIDER(s): Caridad Maldonado DO CHIEF COMPLAINT: Right-sided weakness HPI: This is a 69-year-old male presents emergency room due to concern for worsening right-sided weakness and difficulty walking. Patient states yesterday at 10:30 AM while at [employer] he began to feel as though his right leg was not working properly. He states he felt as though he did not have control of it. He states this seemed better by noon, however recurred again around 430. He states because of his job he went to bed around 8 PM and at that time still felt as though his leg while improved was not back to normal. He states he awoke at 1030 to use the restroom and realized he felt slightly weak in the right arm additionally. He states he got back up at around 2 AM with similar symptoms. He states when he got up then around 4 to go to work he realized that both his right arm and right leg felt weak and as though he could not control them. 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 Patient states around 7 years ago he had a "major stroke" with similar symptoms. He states he has had many strokes in the interim. He states he has not been to see his regular doctor in a while. He states he does take medication for high blood pressure, cholesterol, and still takes a blood thinner. He denies any recent fevers, chills, cough or cold symptoms. Denies any change in medications. Denies chest pain, abdominal pain, shortness of breath, or dizziness. He states he does have a mild headache. He denies any difficulty speaking, swallowing, and no change in vision. PAST MEDICAL HISTORY:See Below PAST SURGICAL HISTORY:See Below FAMILY HISTORY:See Below SOCIAL HISTORY:See Below HOME MEDICATIONS:See Below ALLERGIES:See Below VITALS:See Below PHYSICAL EXAMINATION: GENERAL: alert, well appearing, well nourished, no distress, non-toxic EYE EXAM: normal conjunctiva, PERRL and EOM's grossly intact OROPHARYNX: no exudate, no erythema, lips, buccal mucosa, and tongue normal and mucous membranes are moist NECK: supple, no nuchal rigidity, no adenopathy, non-tender LUNGS: Clear to auscultation. Normal chest wall mechanics, no w/r/r HEART: no murmurs, S1 normal and S2 normal ABDOMEN: abdomen soft, non-tender, normo-active bowel sounds, no masses, no rebound or guarding. BACK: Back is symmetrical on inspection and there is no deformity, no midline tenderness, no CVA tenderness. SKIN: no rashes, petechiae, orbruising UPPER EXTREMITIES: upper extremities are grossly normal. FROM, nml pulses b/l. LOWER EXTREMITIES: No pitting edema. FROM, nml pulses b/l. NEURO EXAM: Normal sensorium, cranial nerves II-XII grossly intact, normal speech, no facial droop,nogross weakness of arms, patient able to raise the right leg off the bed however it fatigues easily and drops back down. Gross sensation intact. Mild right lower extremity ataxia.NIHSS 3 Vital Signs: reviewed and remarkable Differential Diagnosis: ischemic Stroke, hemorrhagic stroke, bells palsy, mass, neoplasm, migraine headache, seizure, subarachnoid hemorrhage, TIA, electrolyte abnormality, occult trauma, as well as others were considered MEDICAL DECISION MAKING: This is a 69-year-old male presents emergency department due to concern for right-sided weakness. Patient states initially began having right leg weakness and difficulty walking yesterday morning at 10:30 AM. Symptoms seem to improve but not resolved, and later on in the evening he realized it was both right arm and right leg. He denied any other neurologic symptoms. Patient with prior similar history and prior stroke. Labs drawn and sent, IV established, EKG and chest x-ray performed at bedside and interpreted by me and patient monitored on telemetry. He was started on gentle IV fluid hydration, and sent for CT/CTA. Given patient's symptoms had already been present for greater than 12 hours, he was not a candidate for thrombolytics. Examination at bedside did reveal mild right-sided weakness and mild right lower extremity ataxia. NIH stroke score of 3. Patient states he is only on aspirin currently however prior records to suggest he has previously been on other anticoagulant medication. We discussed concern for strokelike symptoms despite some waxing and waning of symptoms since they started. We discussed the need for further inpatient evaluation pending CT findings, he verbalized understanding. Patient signed out awaiting CT reads. ER Treatment Provided: See below 0830: Patient signed out to Dr. Rea awaiting radiology review of CT imaging and further disposition. At this time I would anticipate patient requiring further inpatient evaluation due to stroke history. Diagnostics Interpreted By Me: -ECG: Sinus bradycardia 54, normal axis, normal intervals, no acute ST/T wave changes -Cardiac Monitoring: An order was placed for continuous cardiac monitoring. The monitor shows a rate of 62 with normal sinus rhythm. -Laboratory studies: As stated above and show below. -Imaging studies: X-ray Chest: A single view study of the chest was reviewed and was negative for cardiomegaly, focal infiltrate, effusion, pulmonary edema, or wide mediastinum. Triage Nursing Note Reviewed Prior/Outside Records Reviewed Past Med/Surg History Problem List (Updated 08/25/24 @ 05:14 by Caridad Maldonado DO) Stroke-like symptom (Acute) Dyslipidemia No known health problems Medical History Dyslipidemia Hypertension Surgical History History of hernia repair S/P AAA repair Family History Mother , age 72 of complications of meningitis. 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 occupational 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: employed Other Information That Helps Us Care for You: No Feels Safe at Home: Yes Safety Concerns: Feels Safe At This Time Assistive Devices: Denture - Upper, Denture - Lower and Glasses Allergies Allergies Allergy/AdvReac Type Severity Reaction Status Date / Time No Known Allergies Allergy Verified 08/25/24 05:11 Home Meds Home Medications Medication Instructions Recorded Confirmed atorvastatin 40 mg tablet (Lipitor) 40 mg PO HS 08/25/24 08/25/24 clopidogrel 75 mg tablet (Plavix) 75 mg PO 1XD 08/25/24 08/25/24 lisinopril 10 mg tablet (Zestril) 10 mg PO DAILY 08/25/24 08/25/24 Results & Data (ED) Vital Signs Vital Signs - 24 hr 08/25/24 04:37 08/25/24 04:37 08/25/24 04:37 Temperature 37.0 C 37 C Temperature Source Oral Oral Pulse Rate 56 L Pulse Rate [Right Finger] 58 L Pulse Rate from SpO2 Sensor Respiratory Rate 17 12 Blood Pressure 152/87 H Blood Pressure [Left Arm] 152/87 H Blood Pressure Mean 108 Blood Pressure Mean [Left Arm] 108 Blood Pressure Position Sitting Blood Pressure Position [Left Arm] Sitting Pulse Oximetry 97 98 98 Oxygen Delivery Method Room Air Room Air Room Air Sepsis Recent Fever Within 48 Hours No Sepsis New/Unexplained Change in Mental Status No Sepsis Action Taken by Nursing No Action Required 08/25/24 04:52 08/25/24 05:00 08/25/24 05:14 Temperature 37.0 C Temperature Source Pulse Rate 62 62 52 L Pulse Rate [Right Finger] Pulse Rate from SpO2 Sensor 53 L Respiratory Rate 15 16 Blood Pressure 125/73 Blood Pressure [Left Arm] Blood Pressure Mean 91 Blood Pressure Mean [Left Arm] Blood Pressure Position Blood Pressure Position [Left Arm] Pulse Oximetry 98 96 Oxygen Delivery Method Room Air Room Air Sepsis Recent Fever Within 48 Hours Sepsis New/Unexplained Change in Mental Status Sepsis Action Taken by Nursing 08/25/24 05:30 08/25/24 06:30 08/25/24 06:45 Temperature 36.9 C Temperature Source Pulse Rate 53 L 54 L 54 L Pulse Rate [Right Finger] Pulse Rate from SpO2 Sensor 53 L 54 L Respiratory Rate 16 16 16 Blood Pressure 133/77 158/85 H Blood Pressure [Left Arm] Blood Pressure Mean 98 116 Blood Pressure Mean [Left Arm] Blood Pressure Position Blood Pressure Position [Left Arm] Pulse Oximetry 96 98 Oxygen Delivery Method Room Air Room Air Sepsis Recent Fever Within 48 Hours Sepsis New/Unexplained Change in Mental Status Sepsis Action Taken by Nursing 08/25/24 07:00 08/25/24 07:00 08/25/24 07:21 Temperature Temperature Source Pulse Rate 54 L 54 L Pulse Rate [Right Finger] Pulse Rate from SpO2 Sensor Respiratory Rate 16 16 Blood Pressure 141/76 H Blood Pressure [Left Arm] Blood Pressure Mean 94 Blood Pressure Mean [Left Arm] Blood Pressure Position Blood Pressure Position [Left Arm] Pulse Oximetry Oxygen Delivery Method Sepsis Recent Fever Within 48 Hours Sepsis New/Unexplained Change in Mental Status Sepsis Action Taken by Nursing 08/25/24 07:30 08/25/24 07:30 08/25/24 07:33 Temperature Temperature Source Pulse Rate Pulse Rate [Right Finger] Pulse Rate from SpO2 Sensor Respiratory Rate 17 Blood Pressure 143/86 H 143/86 H Blood Pressure [Left Arm] Blood Pressure Mean 109 109 Blood Pressure Mean [Left Arm] Blood Pressure Position Blood Pressure Position [Left Arm] Pulse Oximetry Oxygen Delivery Method Sepsis Recent Fever Within 48 Hours Sepsis New/Unexplained Change in Mental Status Sepsis Action Taken by Nursing 08/25/24 07:45 08/25/24 08:00 08/25/24 08:12 Temperature Temperature Source Pulse Rate 65 56 L Pulse Rate [Right Finger] Pulse Rate from SpO2 Sensor Respiratory Rate 15 16 Blood Pressure 157/90 H Blood Pressure [Left Arm] Blood Pressure Mean 118 Blood Pressure Mean [Left Arm] Blood Pressure Position Blood Pressure Position [Left Arm] Pulse Oximetry Oxygen Delivery Method Sepsis Recent Fever Within 48 Hours Sepsis New/Unexplained Change in Mental Status Sepsis Action Taken by Nursing 08/25/24 08:55 Temperature Temperature Source Pulse Rate 55 L Pulse Rate [Right Finger] Pulse Rate from SpO2 Sensor Respiratory Rate Blood Pressure Blood Pressure [Left Arm] Blood Pressure Mean Blood Pressure Mean [Left Arm] Blood Pressure Position Blood Pressure Position [Left Arm] Pulse Oximetry Oxygen Delivery Method Sepsis Recent Fever Within 48 Hours Sepsis New/Unexplained Change in Mental Status Sepsis Action Taken by Nursing Laboratory Data 08/25/24 05:05 08/25/24 05:05 Lab Results 08/25/24 Range/Units 05:05 WBC 7.04 (4.8-10.8) K/ul RBC 5.08 (4.70-6.10) M/uL Hgb 15.3 (14.0-18.0) g/dl Hct 46.2 (42.0-52.0) % MCV 90.9 (80.0-100.0) fL MCH 30.1 (25.0-34.0) pg MCHC 33.1 (32.0-36.0) g/dL RDW Std Deviation 42.5 (36.4-46.3) fL RDW Coeff of Shlomo 12.8 (11.5-14.5) % Plt Count 190 (130-400) K/uL MPV 10.3 (9.4-12.4) fL Immature Gran % (Auto) 0.3 % Neut % (Auto) 59.5 % Lymph % (Auto) 27.3 % [place] % (Auto) 9.1 % Eos % (Auto) 3.1 % Baso % (Auto) 0.7 % Neut # (Auto) 4.19 (1.40-6.50) K/uL Lymph # (Auto) 1.92 (1.20-3.40) K/uL [place] # (Auto) 0.64 H (0.11-0.59) K/uL Eos # (Auto) 0.22 (0.00-0.50) K/uL Baso # (Auto) 0.05 (0.00-0.20) K/uL Immature Gran # (Auto) 0.02 (0.01-0.20) K/uL PT 10.2 (9.0-12.0) Seconds INR 0.9 (0.9-1.1) APTT 27 (21-31) Seconds PTT Ratio 1.0 Sodium 139 (136-145) mmol/L Potassium 4.5 (3.5-5.1) mmol/L Chloride 108 H (98-107) mmol/L Carbon Dioxide 26 (21-32) mmol/L Anion Gap 5 (3-11) BUN 19 (6-23) mg/dl Creatinine 1.03 (0.6-1.4) mg/dl Est Cr Clr Drug Dosing 67.8 ml/min Est GFR ( Amer) 84.3 ml/min Est GFR (Non-Af Amer) 72.7 ml/min BUN/Creatinine Ratio 18.4 (10-20) Glucose 107 H (70-99(Fasting)) mg/dl Calcium 9.6 (8.6-10.3) mg/dl Magnesium 2.1 (1.7-2.4) mg/dl Total Bilirubin 0.8 (0.2-1.0) mg/dl AST 18 (13-39) U/L ALT 18 (7-52) U/L Alkaline Phosphatase 74 (34-104) U/L Troponin I High Sens 2.7 (0-20) pg/ml Total Protein 6.6 (6.0-8.3) gm/dl Albumin 3.9 (3.4-5.0) gm/dl Globulin 2.7 (2.5-4.0) gm/dl Albumin/Globulin Ratio 1.4 (0.9-2) Administered Medications Atorvastatin Calcium (Atorvastatin 40 Mg Tab) 40 mg PO HS JHONY Stop: 09/24/24 20:59 Last Admin: 08/25/24 20:49 Dose: 40 mg Documented By: DIXON Sodium Chloride (Nss) 1,000 mls @ 125 mls/hr IV .Q8H JHONY Stop: 09/24/24 05:14 Last Infusion: 08/25/24 19:30 Dose: Infused Documented By: Admin: 08/25/24 13:31 Dose: 125 mls/hr Documented By: Infusion: 08/25/24 13:31 Dose: Infused Documented By: Admin: 08/25/24 06:03 Dose: 125 mls/hr Documented By: PATTI Discontinued Medications Ioversol (Optiray 320 125ml) 120 ml IV ONCE ONE Stop: 08/25/24 05:50 Last Admin: 08/25/24 05:49 Dose: 120 ml Documented By: SHAYLEE Discharge Plan Visit Data Chief Complaint: Weakness Stated Complaint: R Arm Weakness, Unsteady Gait ED Provider: Lindsey Rea Discharge Problem: Stroke-like symptom Patient Disposition: Admitted As Inpatient Discharge Instructions Interventions: ED Discharge Assessment Last Done: 08/25/24 11:26
[2024-08-25 05:19] LABS: Basophils # (auto) 0.05 K/uL (0.00-0.20); Basophils % (auto) 0.7 %; Eosinophils # (auto) 0.22 K/uL (0.00-0.50); Eosinophils % (auto) 3.1 %; Hematocrit (blood only) 46.2 % (42.0-52.0); Hemoglobin 15.3 g/dl (14.0-18.0); Immature Granulocytes # (auto) 0.02 K/uL (0.01-0.20); Immature Granulocytes % (auto) 0.3 %; Lymphocytes # (auto) 1.92 K/uL (1.20-3.40); Lymphocytes % (auto) 27.3 %; Mean Corpuscular Hemoglobin 30.1 pg (25.0-34.0); Mean Corpuscular Hgb Conc 33.1 g/dL (32.0-36.0); Mean Corpuscular Volume 90.9 fL (80.0-100.0); Mean Platelet Volume 10.3 fL (9.4-12.4); Monocytes # (auto) 0.64 K/uL (0.11-0.59); Monocytes % (auto) 9.1 %; Neutrophils # (auto) 4.19 K/uL (1.40-6.50); Neutrophils % (auto) 59.5 %; Platelet Count 190 K/uL (130-400); RDW Coefficient of Variation 12.8 % (11.5-14.5); RDW Standard Deviation 42.5 fL (36.4-46.3); Red Blood Count 5.08 M/uL (4.70-6.10); White Blood Count 7.04 K/ul (4.8-10.8)
[2024-08-25 05:34] LABS: Albumin Globulin Ratio 1.4 (0.9-2); Albumin Level 3.9 gm/dl (3.4-5.0); BUN Creatinine Ratio 18.4 (10-20); Bilirubin,Total 0.8 mg/dl (0.2-1.0); Calcium 9.6 mg/dl (8.6-10.3); Creatinine Clr Calc Pharmacy 67.8 ml/min; Est GFR (African American) 84.3 ml/min; Est GFR (Non-African American) 72.7 ml/min; Globulin 2.7 gm/dl (2.5-4.0); Magnesium 2.1 mg/dl (1.7-2.4); Potassium 4.5 mmol/L (3.5-5.1); Total Protein 6.6 gm/dl (6.0-8.3)
[2024-08-25 05:40] LABS: Troponin I High Sensitivity 2.7 pg/ml (0-20)
[2024-08-25 05:46] LABS: INR 0.9 (0.9-1.1); Partial Thromboplastin Time 27 Seconds (21-31); Prothrombin Time 10.2 Seconds (9.0-12.0)
[2024-08-25] MEDS: OPTIRAY 320 125ml IV ONE (05:49)
[2024-08-25] MEDS: SODIUM CHLORIDE 0.9% 1,000 ML IV SCH (06:03)
--- OUTSIDE RECORDS SUMMARY | 2024-08-25 07:56 | External Medical Summary | Summary of Care ---
Author Name Unknown Organization [facility] Address [address] [place] [address] Phone [phone] Care Team Providers Care Sand Plant Attendant Name Role Phone Min Roberto MD Primary Care Provide r Reason for Visit * Reason Onset Date Comments STAIR AAA 03/23/2024 Encounter Details Date Type Department Care Team (Late st Contact Info) Description 03/23/2024 Telephone STAIR AAA [address] [place], [place] [id number] Program, Stair [address] [place] [address] STAIR AAA Allergies No known active allergiesdocumented as of this encounter (statuses as of 03/23/2024) Medications Medication Sig Dispensed Refills Start Date End Date Status atorvaSTATin (LIPITOR) 40 MG Tablet Take 1 Tablet by mouth in the morning. 0 Active famotidine (PEPCID) 20 MG Tablet Take 1 Tab by mouth 2 times a day. 60 Tab 0 01/29/2019 Active warfarin sodium (COUMADIN) 7.5 MG Tablet Take 2 tablets on Tuesday and 1 tablet all other days or as directed by [facility] Pharmacist (Disp 115/90 days). NOTE DOSE CHANGE 115 Tab 2 09/28/2019 Active Lisinopril 5 MG Oral Tablet (Prinivil) Take 2 Tablets by mouth in the morning. 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 HTN, goal below 130/80 08/13/2019 History of tobacco use 08/13/2019 Hyperlipidemia with target LDL less than 70 07/29 GERD (gastroesophageal reflux disease) 9 Gilbert's disease 01/29/2019 Acute pancreatitis 01/26/2019 Chest pain, atypical 01/26/2019 Pulmonary emphysema 01/26/2019 Mixed dyslipidemia 07/30/1998 DERMATITIS NOS - Nerves 07/29/1998 Tobacco use disorder 07/29/1998 documented as of this encounter (statuses as of 03/23/2024) Immunizations Name Administration Dates Next Due Covid-19 Ad26, Single Dose (Tony/J&J) 021 Seasonal Influenza, Quadrivalent Hd (Fluzone Hd) 08/20/2021 documented as of this encounter Social History Tobacco Use Types Packs/Day Years Used Date Smoking Tobacco: Former Cigarettes 2.5 25 Smokeless Tobacco: Current Chew Alcohol Use Standard Drinks/Week Comments Yes 0 (1 standard drink = 0.6 oz pure alcohol) As of 2.17.2006, the last noted alcohol intake was 3 ounces. AUDIT-C Answer Date Recorded Frequency of Alcohol Consumption Never 01/26/2019 Average Number of Drinks Not on file 019 Frequency of Binge Drinking Not on file 11/2018 Sex and Gender Information Value Date Recorded Sex Assigned at Not on file Gender Identity Not on file Sexual Orientation Not on file Job Start Date Occupation Industry Not on file Not on file Not on file documented as of this encounter Functional Status Functional Status Response Date of Assess ment Are you deaf or do you have serious difficulty h earing? No 08/19/2021 Are you blind or do you have serious difficulty seeing, even when wearing glasses? No 08/19/2021 Do you have serious difficul ty walking or climbing stairs? (5 years old or older) No 08/19/2021 Do you have difficulty dress ing or bathing? (5 years old or older) No 08/19/2021 Because of a physical, menta l, or emotional condition, do you have difficulty doing errands alone such as visiting a doctor s office or shopping? (15 years old or older) No 08/19/20 Cognitive Status Response Date of Assessm ent Because of a physical, menta l, or emotional condition, do you have serious difficulty concentrating, remembering, or making decisions? (5 years old or older) No 08/19/2021 documented as of this encounter Miscellaneous Notes * Telephone Encounter - Theresa Saul LPN - 03/23/2024 8:10 AM EDT AAA - Clinical Summary Name: Harman Rudolph Age: [age] year old AAA Review: Initial Follow-up Encounter Provider: N/A Patient Identified by: Problem List Report Imaging Interpretation: CTA Type of Result: SP EVAR AAA Care Plan Imaging Recommendation: No Imaging needed. Details: None AAA Care Plan Visit Recommendation: New Routine Referral to Vascular Surgery Details: None Next steps: Letter sent to non-[facility] PCP. Time spent: 10 minutes Theresa Saul LPN Coordinator STAIR (System to Track Abnormalities of Importance Reliably) CTA ABD/PELVIS 04/04/2023 Narrative PROCEDURE INFORMATION: Exam: CTA Chest With Contrast CTA Abdomen and Pelvis With Contrast Exam date and time: 04/04/2023 4:31 PM Age: 67 years old Clinical indication: Other: Known aaa; Shortness of breath; Additional info: Known aaa, acute onset right flank and epigastric pain TECHNIQUE: Imaging protocol: Computed tomographic angiography of the chest with contrast. Computed tomographic angiography of the abdomen and pelvis with contrast. 3D rendering (Not supervised by radiologist): MIP and/or 3D reconstructed images were created by the technologist. Radiation optimization: All CT scans at this facility use at least one of these dose optimization techniques: automated exposure control; mA and/or kV adjustment per patient size (includes targeted exams where dose is matched to clinical indication); or iterative reconstruction. Contrast material: OPTIRAY 350; Contrast volume: 100 ml; Contrast route: INTRAVENOUS (IV); REPORTING DATA: Count of CT and Cardiac NM exams in prior 12 months: This patient has received [address] and 0 known cardiac nuclear medicine studies in the 12 months prior to the current study. COMPARISON: CTA CHEST NON-CORONARY 02/04/2022 11:01 AM FINDINGS: Tubes, catheters and devices: Stent graft is patent. Both iliac limbs are patent.There is no evidence of dissection, leak, rupture, or other acute vascular pathology. VASCULATURE: Pulmonary arteries: Normal. No pulmonary emboli. Aorta: There is mild ectasia of the thoracic aorta at the level of the arch, stable compared to previous. Thoracic aorta is otherwise of normal caliber. Infrarenal abdominal aortic aneurysm has been treated with the stent graft. Positioning of stent graft not changed from previous. Excluded aneurysm sac measuring approximately 5.1 cm, stable or decreased from previous. No definite endoleak identified. Celiac trunk and mesenteric arteries: No occlusion or significant stenosis. Renal arteries: No occlusion or significant stenosis. Right iliac arteries: No occlusion or significant stenosis. Left iliac arteries: No occlusion or significant stenosis. CHEST: Lungs: Stable centrilobular emphysematous changes are present. Pleural spaces: Unremarkable. No pneumothorax. No pleural effusion. Heart: Unremarkable. No cardiomegaly. No pericardial effusion. Coronary arteries: There is moderate atherosclerotic calcification of the coronary arteries. ABDOMEN AND PELVIS: Liver: No mass. Gallbladder and bile ducts: Unremarkable. No calcified stones. No ductal dilation. Pancreas: Unremarkable. No mass. No ductal dilation. Spleen: Unremarkable. No splenomegaly. Adrenal glands: Unremarkable. No mass. Kidneys and ureters: Unremarkable. No solid mass. No hydronephrosis. Stomach and bowel: There is excessive colonic stool content. Moderate diverticulosis is present in the distal colon. Appendix: No evidence of appendicitis. Intraperitoneal space: Unremarkable. No free air. No significant fluid collection. Urinary bladder: Unremarkable. No mass. Reproductive: Unremarkable as visualized. Lymph nodes: Stable shotty mediastinal lymph nodes compared to previous. Bones/joints: The spine demonstrates moderate degenerative changes at multiple levels. Soft tissues: There is a fat-containing umbilical hernia. Other findings: The vasculature demonstrates diffuse moderate atherosclerotic calcification. Impression IMPRESSION: 1. Thoracic aorta shows mild ectasia at the level of the arch, stable compared to previous.There is no evidence of dissection, leak, rupture, or other acute vascular pathology. 2. Stable appearance of abdominal aortic aneurysm treated with stent graft. No endoleak or active extravasation identified.There is no evidence of dissection, leak, rupture, or other acute vascular pathology. 3. Extensive emphysema, similar to previous 4. Diverticulosis 5. Constipation THIS DOCUMENT HAS BEEN ELECTRONICALLY SIGNED BY TEDDY BAJWA MD documented in this encounter Plan of Treatment Health Maintenance Due Date Last Done Comments Depression Screening 1965 Albumin/Creatinine Ratio 1971 Alpha-1 Antitrypsin 1971 DTaP,Tdap,and Td Vaccines (1 - Tdap) 1972 Cologuard 1998 Colonoscopy 1998 Colorectal Cancer Screening 1998 Fecal Occult Blood Test 1998 Sigmoidoscopy 1998 Zoster Vaccines (1 of 2) 2003 *COPD SEVERITY VERIFIED BY PFT 08/12/2019 COVID-19 Vaccine ( season) 2023 12/17/2021, 08/19/2021 AAA Monitoring 04/04/2024 04/04/2023, 08/28, 02/04/2022, Additional history exists GFR 04/04/2024 04/04/2023, 11/30, 02/04/2022, Additional history exists O2 ASSESSMENT COMPLETED IN PAST YEAR FOR COPD 04/04/2024 04/04/2023 Influenza Vaccine (FLU shot) (Season Ended) 2024 08/20/2021, 08/20/2021, 08/20/2021 Pneumococcal Vaccine: 65+ Years Completed 02/23/2023 GARDASIL-HPV IMMUNIZATION SERIES Aged Out No longer eligible based on patient's age to complete this topic Hepatitis B Aged Out No longer eligi ble based on patient's age to complete this topic MENINGOCOCCAL (MENACTRA/MENVEO) Aged Out No longer eligible based on patient's age to complete this topic documented as of this encounter Medical Devices Not on filedocumented as of this encounter Advance Directives Latest Code Status on File Code Status Date Activated Date Inactivated Comments Full Code 08/19/2021 1:06 AM 08/20/2021 5:08 PM This order reflects the patients wishes and were consensually agreed upon. Question Answer Comments Discussion of Advance Directives occurred with: Not Discussed Does the patient have a Living Will? No Does the patient have Health Care Power of Garnetter? No Code Status History Code Status Date Activated Date Inactivated Comments Full Code 08/10/2019 8:43 PM 08/13/2019 6:35 PM This order reflects the patients wishes and were consensually agreed upon. Question Answer Comments Discussion of Advance Directives occurred with: Patient Does the patient have a Living Will? No Does the patient have Health Care Power of Garnetter? No Full Code 08/10/2019 7:05 PM 08/10/2019 8:43 PM This order reflects the patients wishes and were consensually agreed upon. Question Answer Comments Discussion of Advance Directives occurred with: Not Discussed Does the patient have a Living Will? No Does the patient have Health Care Power of Garnetter? No Full Code 01/26/2019 4:04 PM 01/29/2019 7:44 PM This or reyes reflects the patients wishes and were consensually agreed upon. Patient is a full code Question Answer Comments Discussion of Advance Directives occurred with: Patient Does the patient have a Living Will? No Does the patient have Health Care Power of Garnetter? Yes, in chart and reviewed as current Full Code 01/26/2019 3:19 PM 01/26/2019 4:04 PM This or reyes reflects the patients wishes and were consensually agreed upon. 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 Question Answer Comments Discussion of Advance Directives occurred with: Patient Does the patient have a Living Will? No Does the patient have Health Care Power of Garnetter? Yes, in chart and reviewed as current Care Teams Sand Plant Attendant Relationship Specialty Start Date End Date Min Roberto MD [address] [place] [address] PCP - General Emergency Medicine 05/04/23 documented as of this encounter
--- NOTE | 2024-08-25 08:07 | XRay Report ---
SINGLE VIEW CHEST CLINICAL HISTORY: Neurological deficit. Stroke like symptoms. FINDINGS: A PA chest radiograph is compared to study dated 05/03/2023. The cardiomediastinal silhouette is unremarkable noting atherosclerotic calcification of the thoracic aorta. There is minimal bibasil ar atelectasis. The lungs and pleural spaces are otherwise clear. No pneumothorax is seen. The skelet al structures are osteopenic. The bony thorax is grossly intact. IMPRESSION: No active disease in the chest. ACT 112: Negative or not required by law. Electronically signed by: Reggie Williamson M.D. 08/25/2024 8:06 AM
--- NOTE | 2024-08-25 08:07 | Emergency Department Note ---
ED Visit Note Patient signed out to me by Dr. Maldonado, pending CT imaging results. History: Patient is a 69-year-old male presenting with worsening right-sided weakness and ambulatory dysfunction. Yesterday at 10:30 AM, he started feel like his right leg was not working properly while at a department store. He states that he fel t better shortly after but then it recurred again around 1630. He went to bed at 8 PM and he felt like his leg was still not back to normal. He awoke at 10:30 PM to use the restroom and felt very weak on the right side and his left leg symptoms persisted. He states that around 7 years ago he had a stroke that presented with similar symptoms. He states that he has had "mini strokes" in the last 7 years. MDM: - Laboratory workup interpreted by myself showed normal WBC; stable electrolytes; normal PT/INR; normal troponin - CXR negative for pneumonia, per my interpretation - CT head wo contrast negative for acute intracranial pathology. - CTA head/neck negative for acute pathology. 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 - Patient on plavix daily - Symptoms started >24 hours prior to arrival. Not a TNK candidate and no obvious LVO on imaging. - Given patient's weakness and ambulatory dysfunction, will admit to hospitalist service for further strokelike workup and medication management. - Hospitalist consulted for admission -Patient to be admitted to [facility] hospitalist service for further evaluation and management. Diagnosis: stroke-like symptoms; right-sided weakness Plan: admit .
--- NOTE | 2024-08-25 08:41 | CT Scan Report ---
UNENHANCED CT OF THE BRAIN; CT ANGIOGRAM OF THE BRAIN; CT ANGIOGRAM OF THE NECK CLINICAL HISTORY: Neurological deficit. Stroke like symptoms. Right-sided weakness. Unsteady gait. COMPARISON STUDY: CT angiogram of the head and neck dated 05/03/2023. TECHNIQUE: Unenhanced axial CT scan of the brain is performed. Subsequently, following the IV adminis tration of 120 of Optiray 320, CT angiogram of the head and neck was performed from the aortic arch t o the vertex. Images are reviewed in the axial, sagittal, and coronal planes. 3-D MIPS images are cre ated and assessed. IV contrast was administered without complication. All measurements were calculate d based on NASCET criteria. A dose lowering technique was utilized adhering to the principles of ALA RA. CT DOSE: 1011.31 mGy.cm FINDINGS: Brain parenchyma: There is age related involutional change noting minimal microangiopathic disease. T here is no hemorrhage, mass effect, or evidence of acute territorial ischemia by CT criteria. There i s no evidence of enhancing mass lesion on the angiogram phase images. The ventricles, sulci, and cist erns are prominent secondary to involutional change. Epps-white matter differentiation is preserved. No extra-axial fluid collection is seen. Thoracic aorta: There is atherosclerotic calcification of the thoracic aorta Visualized portions of t he thoracic aorta are normal in caliber. The aortic arch demonstrates standard 3-vessel anatomy. Right carotid arterial system: The right common carotid artery is widely patent, as are the right int ernal and external carotid arteries. Calcified plaque is noted in the carotid bulb. Left carotid arterial system: The left common carotid artery is widely patent, as is the left interna l and external carotid arteries. There is calcified plaque seen in the carotid bulb. 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 There are trace foci of reconstitution seen distally within the vessel. The left verte bral artery is occluded at the skull base. The right vertebral artery in the neck is widely patent. Subclavian arteries: Widely patent bilaterally. Intracranial vasculature: There is atherosclerotic calcification of the cavernous carotid and vertebr al arteries. The internal carotid arteries are patent at the skull base, as are the anterior and midd le cerebral arteries bilaterally. There are bilateral posterior communicating arteries, left larger t plummer right. The left vertebral artery at the skull base is occluded. The right vertebral artery is pat ent at the skull base. The distal right vertebral artery and the proximal basilar artery are occluded . The mid to distal basilar artery is opacified, likely via retrograde flow. There is focal moderate to high-grade stenosis of the basilar artery seen on axial image #82. The posterior cerebral arteries are patent. No aneurysm is seen. Jugular veins: Patent bilaterally. Dural sinuses: Patent. Lung apices: Advanced exam is change is observed. Partially visualized upper lobe lung parenchyma oth erwise appears clear. Soft tissues: The visualized pharyngeal soft tissues are normal in appearance noting angiographic pha se technique. The oropharyngeal airway appears widely patent. The salivary and thyroid glands are nor mal in appearance. No cervical lymphadenopathy is seen. Skeletal structures: The skeletal structures are osteopenic. The calvarium appears intact. The cervic al spine is maintained noting mild multilevel spondylosis. Orbits: The bony orbits are intact. Orbital contents are normal as visualized. Sinuses and mastoids: There is mild mucosal thickening within the right maxillary antrum. The remaini ng paranasal sinuses are clear. The mastoid air cells are well pneumatized. IMPRESSION: 1. There is no hemorrhage, mass effect, or evidence of acute territorial ischemia by CT criteria. 2. Chronic occlusion of the left vertebral artery is similar to previous. This includes both the intr acranial and extracranial portions. 3. There is chronic occlusion of the distal intracranial right vertebral artery as well as the proxim al basilar artery. 4. The mid to distal basilar artery is opacified, likely via retrograde flow. Again seen is moderate to severe focal high-grade stenosis of the mid to distal basilar artery. 5. The remaining intracranial vessels are patent. 6. The right vertebral artery in the neck is patent. 7. The carotid arteries in the neck are patent with no evidence of hemodynamically significant stenos is. 8. Advanced emphysema. ACT 112: Negative or not required by law. Electronically signed by: Reggie Williamson M.D. 08/25/2024 8:38 AM
--- NOTE | 2024-08-25 10:13 | History & Physical Report ---
Date of Service August 25, 2024 Assessment & Plan (1) Stroke-like symptom: Plan #Stroke like symptoms likely 2/2 chronic vertebral and basilar artery occlusions vs. TIA/CVA #Htn, HLD #PVD, AAA s/p repair Symptoms similar to his previous episodes which were attributed to verte bral/basilar occlusions Out of the window for TNK -neuro consult -restart home meds -it is unclear whether there is a definitive solution to patient's vertebral and basilar issues, he was intolerance to previous attempt at repair, I will not consult vascular or [facility] for now unless recommendations are given from neurology to do so -PT/OT/ST -bedside swallow before diet -aspiration and fall precautions for now -risk factor evaluation: a1c, lipids, ammonia, TSH -tele admission -stat head CT neurologic changes #COPD #Previous smoker -monitor IVF NPO until bedside swallow Home antiplatelets No PPI History of Present Illness Chief Complaint: LLE weakness Primary Care Provider: Jorge Araya 69M pmh 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 Patient states that yesterday AM he first started to have RUE and RLE weakness as well as balance issues. These symptoms resolved but represented that PM, and again today AM, for which he presented to the ED. Currently his RUE weakness is resolved, but states that his RLE still feels weak. On exam strength and sensation and appropriate and equal between the LE, and the patient attributes his feelings of weakness to difficulty with balance. Of note patient has a long history of CVA/TIA, with previous diagnosis of bilateral vertebral artery occlusions for which intraarterial thrombectomy was attempted but failed due to patient's decomposition during surgery at [facility] in [place]. Previous symptoms also potentially attributed to basilar artery occlusion. Patient states these symptoms resemble his previous episodes of TIA/CVA, and confirms that he is currently on asa/plavix, not warfarin which was previously described in the medical record. Patient is unclear why he is not on warfarin, and has not seen or been following with a neurologist since his last major CVA. Allergies Allergy/AdvReac Type Severity Reaction Status Date / Time No Known Allergies Allergy Verified 08/25/24 05:11 Home Medications Medication Instructions Recorded Confirmed Type atorvastatin 40 mg tablet (Lipitor) 40 mg PO HS 08/25/24 08/25/24 History clopidogrel 75 mg tablet (Plavix) 75 mg PO 1XD 08/25/24 08/25/24 History lisinopril 10 mg tablet (Zestril) 10 mg PO DAILY 08/25/24 08/25/24 History Past Med/Surg History Problem List (Updated 08/25/24 @ 05:14 by Caridad Maldonado, ) Stroke-like symptom (Acute) Dyslipidemia No known health problems Medical History Dyslipidemia Hypertension Surgical History History of hernia repair S/P AAA repair Family History Mother , age 72 of complications of meningitis. 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 Feels Safe at Home: Yes Assistive Devices: Glasses Review of Systems Neurologic: + gait abnormality, + unsteadiness, + lo calized weakness and + lack of coordination; no falls, no numbness, no paresthesia, no dizziness, no syncope, no headache(s) and no confusion Physical Exam Constitutional: WD/WN, vitals as above Cardiovascular: RRR, no murmur, no edema Neurologic: normal touch/pain/proprioception, CN's II-XI intact bilaterally, moves all extremities and awake; no focal motor deficits Motor/Sensory: normal movement and no sensory deficit Cranial Nerves: PERRL, EOM intact bilaterally, normal facial strength, tongue midline and able to elevate shoulders bilaterally some word finding difficulties which he states are chronic for him Psychiatric: A+Ox3, euthymic affect Results & Data Results & Data Vital Signs (Past 12 Hours) Vital Signs Temp Pulse Pulse Resp BP BP Pulse Ox 08/25/24 08:55 55 L 08/25/24 08:12 56 L 16 08/25/24 08:00 157/90 H 08/25/24 07:45 65 15 08/25/24 07:33 17 08/25/24 07:30 143/86 H 08/25/24 07:30 143/86 H 08/25/24 07:21 54 L 16 08/25/24 07:00 54 L 16 08/25/24 07:00 141/76 H 08/25/24 06:45 54 L 16 08/25/24 06:30 36.9 C 54 L 16 158/85 H 98 08/25/24 05:30 53 L 16 133/77 96 08/25/24 05:14 37.0 C 52 L 16 125/73 96 08/25/24 05:00 62 15 98 08/25/24 04:52 62 08/25/24 04:37 37 C 56 L 12 152/87 H 98 08/25/24 04:37 37.0 C 58 L 17 152/87 H 98 08/25/24 04:37 97 O2 Del Method 08/25/24 08:55 08/25/24 08:12 08/25/24 08:00 08/25/24 07:45 08/25/24 07:33 08/25/24 07:30 08/25/24 07:30 08/25/24 07:21 08/25/24 07:00 08/25/24 07:00 08/25/24 06:45 08/25/24 06:30 Room Air 08/25/24 05:30 Room Air 08/25/24 05:14 Room Air 08/25/24 05:00 Room Air 08/25/24 04:52 08/25/24 04:37 Room Air 08/25/24 04:37 Room Air 08/25/24 04:37 Room Air Laboratory Results Laboratory Results WBC 7.04 K/ul (4.8-10.8) 08/25/24 05:05 RBC 5.08 M/uL (4.70-6.10) 08/25/24 05:05 Hgb 15.3 g/dl (14.0-18.0) 08/25/24 05:05 Hct 46.2 % (42.0-52.0) 08/25/24 05:05 MCV 90.9 fL (80.0-100.0) 08/25/24 05:05 MCH 30.1 pg (25.0-34.0) 08/25/24 05:05 MCHC 33.1 g/dL (32.0-36.0) 08/25/24 05:05 RDW Std Deviation 42.5 fL (36.4-46.3) 08/25/24 05:05 RDW Coeff of Shlomo 12.8 % (11.5-14.5) 08/25/24 05:05 Plt Count 190 K/uL (130-400) 08/25/24 05:05 MPV 10.3 fL (9.4-12.4) 08/25/24 05:05 Immature Gran % (Auto) 0.3 % 08/25/24 05:05 Neut % (Auto) 59.5 % 08/25/24 05:05 Lymph % (Auto) 27.3 % 08/25/24 05:05 [place] % (Auto) 9.1 % 08/25/24 05:05 Eos % (Auto) 3.1 % 08/25/24 05:05 Baso % (Auto) 0.7 % 08/25/24 05:05 Neut # (Auto) 4.19 K/uL (1.40-6.50) 08/25/24 05:05 Lymph # (Auto) 1.92 K/uL (1.20-3.40) 08/25/24 05:05 [place] # (Auto) 0.64 K/uL (0.11-0.59) H 08/25/24 05:05 Eos # (Auto) 0.22 K/uL (0.00-0.50) 08/25/24 05:05 Baso # (Auto) 0.05 K/uL (0.00-0.20) 08/25/24 05:05 Immature Gran # (Auto) 0.02 K/uL (0.01-0.20) 08/25/24 05:05 PT 10.2 Seconds (9.0-12.0) 08/25/24 05:05 INR 0.9 (0.9-1.1) 08/25/24 05:05 APTT 27 Seconds (21-31) 08/25/24 05:05 PTT Ratio 1.0 08/25/24 05:05 Sodium 139 mmol/L (136-145) 08/25/24 05:05 Potassium 4.5 mmol/L (3.5-5.1) 08/25/24 05:05 Chloride 108 mmol/L (98-107) H 08/25/24 05:05 Carbon Dioxide 26 mmol/L (21-32) 08/25/24 05:05 Anion Gap 5 (3-11) 08/25/24 05:05 BUN 19 mg/dl (6-23) 08/25/24 05:05 Creatinine 1.03 mg/dl (0.6-1.4) 08/25/24 05:05 Est Cr Clr Drug Dosing 67.8 ml/min 08/25/24 05:05 Est GFR ( Amer) 84.3 ml/min 08/25/24 05:05 Est GFR (Non-Af Amer) 72.7 ml/min 08/25/24 05:05 BUN/Creatinine Ratio 18.4 (10-20) 08/25/24 05:05 Glucose 107 mg/dl (70-99(Fasting)) H 08/25/24 05:05 Calcium 9.6 mg/dl (8.6-10.3) 08/25/24 05:05 Magnesium 2.1 mg/dl (1.7-2.4) 08/25/24 05:05 Total Bilirubin 0.8 mg/dl (0.2-1.0) 08/25/24 05:05 AST 18 U/L (13-39) 08/25/24 05:05 ALT 18 U/L (7-52) 08/25/24 05:05 Alkaline Phosphatase 74 U/L (34-104) 08/25/24 05:05 Troponin I High Sens 2.7 pg/ml (0-20) 08/25/24 05:05 Total Protein 6.6 gm/dl (6.0-8.3) 08/25/24 05:05 Albumin 3.9 gm/dl (3.4-5.0) 08/25/24 05:05 Globulin 2.7 gm/dl (2.5-4.0) 08/25/24 05:05 Albumin/Globulin Ratio 1.4 (0.9-2) 08/25/24 05:05 Impressions Chest X-Ray 08/25/24 05:03 SINGLE VIEW CHEST CLINICAL HISTORY: Neurological deficit. Stroke like symptoms. FINDINGS: A PA chest radiograph is compared to study dated 05/03/2023. The cardiomediastinal silhouette is unremarkable noting atherosclerotic calcification of the thoracic aorta. There is minimal bibasilar atelectasis. The lungs and pleural spaces are otherwise clear. No pneumothorax is seen. The skeletal structures are osteopenic. The bony thorax is grossly intact. IMPRESSION: No active disease in the chest. ACT 112: Negative or not required by law. Electronically signed by: Reggie Williamson M.D. 08/25/2024 8:[address] 08/25/24 05:[address] OF THE BRAIN; CT ANGIOGRAM OF THE BRAIN; CT ANGIOGRAM OF THE NECK CLINICAL HISTORY: Neurological deficit. Stroke like symptoms. Right-sided weakness. Unsteady gait. COMPARISON STUDY: CT angiogram of the head and neck dated 05/03/2023. TECHNIQUE: Unenhanced axial CT scan of the brain is performed. Subsequently, following the IV administration of 120 of Optiray 320, CT angiogram of the head and neck was performed from the aortic arch to the vertex. Images are reviewed in the axial, sagittal, and coronal planes. 3-D MIPS images are created and asse ssed. IV contrast was administered without complication. All measurements were calculated based on NASCET criteria. A dose lowering technique was utilized adhering to the principles of ALARA. CT DOSE: 1011.31 mGy.cm FINDINGS: Brain parenchyma: There is age related involutional change noting minimal microangiopathic disease. There is no hemorrhage, mass effect, or evidence of acute territorial ischemia by CT criteria. There is no evidence of enhancing mass lesion on the angiogram phase images. The ventricles, sulci, and cisterns are prominent secondary to involutional change. Epps-white matter differentiation is preserved. No extra-axial fluid collection is seen. Thoracic aorta: There is atherosclerotic calcification of the thoracic aorta Visualized portions of the thoracic aorta are normal in caliber. The aortic arch demonstrates standard 3-vessel anatomy. Right carotid arterial system: The right common carotid artery is widely patent, as are the right internal and external carotid arteries. Calcified plaque is noted in the carotid bulb. Left carotid arterial system: The left common carotid artery is widely patent, as is the left internal and external carotid arteries. There is calcified plaque seen in the carotid bulb. Vertebral arteries: Again seen is chronic thrombosis of the proximal and mid portions of the left vertebral artery. There are trace foci of reconstitution seen distally within the vessel. The left vertebral artery is occluded at the skull base. The right vertebral artery in the neck is widely patent. Subclavian arteries: Widely patent bilaterally. Intracranial vasculature: There is atherosclerotic calcification of the cavernous carotid and vertebral arteries. The internal carotid arteries are patent at the skull base, as are the anterior and middle cerebral arteries bilaterally. There are bilateral posterior communicating arteries, left larger than right. The left vertebral artery at the skull base is occluded. The right vertebral artery is patent at the skull base. The distal right vertebral artery and the proximal basilar artery are occluded. The mid to distal basilar artery is opacified, likely via retrograde flow. There is focal moderate to high-grade stenosis of the basilar artery seen on axial image #82. The posterior cerebral arteries are patent. No aneurysm is seen. Jugular veins: Patent bilaterally. Dural sinuses: Patent. Lung apices: Advanced exam is change is observed. Partially visualized upper lobe lung parenchyma otherwise appears clear. Soft tissues: The visualized pharyngeal soft tissues are normal in appearance noting angiographic phase technique. The oropharyngeal airway appears widely patent. The salivary and thyroid glands are normal in appearance. No cervical lymphadenopathy is seen. Skeletal structures: The skeletal structures are osteopenic. The calvarium appears intact. The cervical spine is maintained noting mild multilevel spondylosis. Orbits: The bony orbits are intact. Orbital contents are normal as visualized. Sinuses and mastoids: There is mild mucosal thickening within the right maxillary antrum. The remaining paranasal sinuses are clear. The mastoid air cells are well pneumatized. IMPRESSION: 1. There is no hemorrhage, mass effect, or evidence of acute territorial ischemia by CT criteria. 2. Chronic occlusion of the left vertebral artery is similar to previous. This includes both the intracranial and extracranial portions. 3. There is chronic occlusion of the distal intracranial right vertebral artery as well as the proximal basilar artery. 4. The mid to distal basilar artery is opacified, likely via retrograde flow. Again seen is moderate to severe focal high-grade stenosis of the mid to distal basilar artery. 5. The remaining intracranial vessels are patent. 6. The right vertebral artery in the neck is patent. 7. The carotid arteries in the neck are patent with no evidence of hemodynamically significant stenosis. 8. Advanced emphysema. ACT 112: Negative or not required by law. Electronically signed by: Reggei Williamson M.D. 08/25/2024 8:38 AM Head CTA 08/25/24 05:[address] OF THE BRAIN; CT ANGIOGRAM OF THE BRAIN; CT ANGIOGRAM OF THE NECK CLINICAL HISTORY: Neurological deficit. Stroke like symptoms. Right-sided weakness. Unsteady gait. COMPARISON STUDY: CT angiogram of the head and neck dated 05/03/2023. TECHNIQUE: Unenhanced axial CT scan of the brain is performed. Subsequently, following the IV administration of 120 of Optiray 320, CT angiogram of the head and neck was performed from the aortic arch to the vertex. Images are reviewed in the axial, sagittal, and coronal planes. 3-D MIPS images are created and assessed. IV contrast was administered without complication. All measurements were calculated based on NASCET criteria. A dose lowering technique was utilized adhering to the principles of ALARA. CT DOSE: 1011.31 mGy.cm FINDINGS: Brain parenchyma: There is age related involutional change noting minimal microangiopathic disease. There is no hemorrhage, mass effect, or evidence of acute territorial ischemia by CT criteria. There is no evidence of enhancing mass lesion on the angiogram phase images. The ventricles, sulci, and cisterns are prominent secondary to involutional change. Epps-white matter differentiation is preserved. No extra-axial fluid collection is seen. Thoracic aorta: There is atherosclerotic calcification of the thoracic aorta Visualized portions of the thoracic aorta are normal in caliber. The aortic arch demonstrates standard 3-vessel anatomy. Right carotid arterial system: The right common carotid artery is widely patent, as are the right internal and external carotid arteries. Calcified plaque is noted in the carotid bulb. Left carotid arterial system: The left common carotid artery is widely patent, as is the left internal and external carotid arteries. There is calcified plaque seen in the carotid bulb. Vertebral arteries: Again seen is chronic thrombosis of the proximal and mid portions of the left vertebral artery. There are trace foci of reconstitution seen distally within the vessel. The left vertebral artery is occluded at the skull base. The right vertebral artery in the neck is widely patent. Subclavian arteries: Widely patent bilaterally. Intracranial vasculature: There is atherosclerotic calcification of the cavernous carotid and vertebral arteries. The internal carotid arteries are patent at the skull base, as are the anterior and middle cerebral arteries bilaterally. There are bilateral posterior communicating arteries, left larger than right. The left vertebral artery at the skull base is occluded. The right vertebral artery is patent at the skull base. The distal right vertebral artery and the proximal basilar artery are occluded. The mid to distal basilar artery is opacified, likely via retrograde flow. There is focal moderate to high-grade stenosis of the basilar artery seen on axial image #82. The posterior cerebral arteries are patent. No aneurysm is seen. Jugular veins: Patent bilaterally. Dural sinuses: Patent. Lung apices: Advanced exam is change is observed. Partially visualized upper lobe lung parenchyma otherwise appears clear. Soft tissues: The visualized pharyngeal soft tissues are normal in appearance noting angiographic phase technique. The oropharyngeal airway appears widely patent. The salivary and thyroid glands are normal in appearance. No cervical lymphadenopathy is seen. Skeletal structures: The skeletal structures are osteopenic. The calvarium appears intact. The cervical spine is maintained noting mild multilevel spondylosis. Orbits: The bony orbits are intact. Orbital contents are normal as visualized. Sinuses and mastoids: There is mild mucosal thickening within the right maxillary antrum. The remaining paranasal sinuses are clear. The mastoid air cells are well pneumatized. IMPRESSION: 1. There is no hemorrhage, mass effect, or evidence of acute territorial ischemia by CT criteria. 2. Chronic occlusion of the left vertebral artery is similar to previous. This includes both the intracranial and extracranial portions. 3. There is chronic occlusion of the distal intracranial right vertebral artery as well as the proximal basilar artery. 4. The mid to distal basilar artery is opacified, likely via retrograde flow. Again seen is moderate to severe focal high-grade stenosis of the mid to distal basilar artery. 5. The remaining intracranial vessels are patent. 6. The right vertebral artery in the neck is patent. 7. The carotid arteries in the neck are patent with no evidence of hemodynamically significant stenosis. 8. Advanced emphysema. ACT 112: Negative or not required by law. Electronically signed by: Reggie Williamson M.D. 08/25/2024 8:38 AM Neck CTA 08/25/24 05:[address] OF THE BRAIN; CT ANGIOGRAM OF THE BRAIN; CT ANGIOGRAM OF THE NECK CLINICAL HISTORY: Neurological deficit. Stroke like symptoms. Right-sided weakness. Unsteady gait. COMPARISON STUDY: CT angiogram of the head and neck dated 05/03/2023. TECHNIQUE: Unenhanced axial CT scan of the brain is performed. Subsequently, following the IV administration of 120 of Optiray 320, CT angiogram of the head and neck was performed from the aortic arch to the vertex. Images are reviewed in the axial, sagittal, and coronal planes. 3-D MIPS images are created and assessed. IV contrast was administered without complication. All measurements were calculated based on NASCET criteria. A dose lowering technique was utilized adhering to the principles of ALARA. CT DOSE: 1011.31 mGy.cm FINDINGS: Brain parenchyma: There is age related involutional change noting minimal microangiopathic disease. There is no hemorrhage, mass effect, or evidence of acute territorial ischemia by CT criteria. There is no evidence of enhancing mass lesion on the angiogram phase images. The ventricles, sulci, and cisterns are prominent secondary to involutional change. Epps-white matter differentiation is preserved. No extra-axial fluid collection is seen. Thoracic aorta: There is atherosclerotic calcification of the thoracic aorta Visualized portions of the thoracic aorta are normal in caliber. The aortic arch demonstrates standard 3-vessel anatomy. Right carotid arterial system: The right common carotid artery is widely patent, as are the right internal and external carotid arteries. Calcified plaque is noted in the carotid bulb. Left carotid arterial system: The left common carotid artery is widely patent, as is the left internal and external carotid arteries. There is calcified plaque seen in the carotid bulb. Vertebral arteries: Again seen is chronic thrombosis of the proximal and mid portions of the left vertebral artery. There are trace foci of reconstitution seen distally within the vessel. The left vertebral artery is occluded at the skull base. The right vertebral artery in the neck is widely patent. Subclavian arteries: Widely patent bilaterally. Intracranial vasculature: There is atherosclerotic calcification of the soila nous carotid and vertebral arteries. The internal carotid arteries are patent at the skull base, as are the anterior and middle cerebral arteries bilaterally. There are bilateral posterior communicating arteries, left larger than right. The left vertebral artery at the skull base is occluded. The right vertebral artery is patent at the skull base. The distal right vertebral artery and the proximal basilar artery are occluded. The mid to distal basilar artery is opacified, likely via retrograde flow. There is focal moderate to high-grade stenosis of the basilar artery seen on axial image #82. The posterior cerebral arteries are patent. No aneurysm is seen. Jugular veins: Patent bilaterally. Dural sinuses: Patent. Lung apices: Advanced exam is change is observed. Partially visualized upper lobe lung parenchyma otherwise appears clear. Soft tissues: The visualized pharyngeal soft tissues are normal in appearance noting angiographic phase technique. The oropharyngeal airway appears widely patent. The salivary and thyroid glands are normal in appearance. No cervical lymphadenopathy is seen. Skeletal structures: The skeletal structures are osteopenic. The calvarium appears intact. The cervical spine is maintained noting mild multilevel spondylosis. Orbits: The bony orbits are intact. Orbital contents are normal as visualized. Sinuses and mastoids: There is mild mucosal thickening within the right maxillary antrum. The remaining paranasal sinuses are clear. The mastoid air cells are well pneumatized. IMPRESSION: 1. There is no hemorrhage, mass effect, or evidence of acute territorial ischemia by CT criteria. 2. Chronic occlusion of the left vertebral artery is similar to previous. This includes both the intracranial and extracranial portions. 3. There is chronic occlusion of the distal intracranial right vertebral artery as well as the proximal basilar artery. 4. The mid to distal basilar artery is opacified, likely via retrograde flow. Again seen is moderate to severe focal high-grade stenosis of the mid to distal basilar artery. 5. The remaining intracranial vessels are patent. 6. The right vertebral artery in the neck is patent. 7. The carotid arteries in the neck are patent with no evidence of hemodynamically significant stenosis. 8. Advanced emphysema. ACT 112: Negative or not required by law. Electronically signed by: Reggie Williamson M.D. 08/25/2024 8:38 AM Code Status & VTE Plan VTE Prophylaxis Plan VTE Prophylaxis will be ordered: Yes
[2024-08-25] MEDS ORDERED: ACETAMINOPHEN 325 MG TAB PO PRN (11:26)
[2024-08-25] MEDS ORDERED: MELATONIN 3 MG TAB PO PRN (11:26)
--- NOTE | 2024-08-25 12:15 | Electrocardiogram Report ---
Test Reason : Blood Pressure : */* mmHG Vent. Rate : 54 BPM Atrial Rate : 54 BPM P-R Int : 138 ms QRS Dur : 90 ms QT Int : 416 ms P-R-T Axes : 53 53 62 degrees QTcB Int : 394 ms Sinus bradycardia with sinus arrhythmia Low voltage QRS Otherwise normal ECG When compared with ECG of 03-May-2023 07:45, No significant change was found Confirmed by Kirsten Pagan (Bekah) on 08/25/2024 9:43:08 AM Referred By: REFERRED SELF Confirmed By: Kirsten Pagan
[2024-08-25 18:55] LABS: Appearance Urine Clear (Clear); Bilirubin Urine Negative (Negative); Blood Urine Negative (Negative); Color Urine Yellow; Glucose Urine UA Negative (Negative); Ketones Urine Negative (Negative); Leukocyte Esterase Urine Negative (Negative); Nitrite Urine Negative (Negative); Protein Urine Negative (Negative); Specific Gravity Urine 1.017 (1.000-1.030); Urobilinogen Urine Negative (Negative); pH Urine 7.5 (4.5-7.5)
[2024-08-25] MEDS: ATORVASTATIN 40 MG TAB PO SCH (20:49)
[2024-08-25] MEDS ORDERED: POLYETHYLENE (MIRALAX) 17 GM PACK PO PRN (23:33)
[2024-08-26] MEDS: POLYETHYLENE (MIRALAX) 17 GM PACK PO STA (00:24)
[2024-08-26] MEDS: DOCUSATE SODIUM/SENNA 50/8.6MG TAB PO SCH (00:24)
[2024-08-26 05:57] LABS: Hematocrit (blood only) 44.2 % (42.0-52.0); Hemoglobin 14.3 g/dl (14.0-18.0); Mean Corpuscular Hemoglobin 29.9 pg (25.0-34.0); Mean Corpuscular Hgb Conc 32.4 g/dL (32.0-36.0); Mean Corpuscular Volume 92.3 fL (80.0-100.0); Mean Platelet Volume 10.4 fL (9.4-12.4); Platelet Count 167 K/uL (130-400); RDW Coefficient of Variation 13.1 % (11.5-14.5); RDW Standard Deviation 44.5 fL (36.4-46.3); Red Blood Count 4.79 M/uL (4.70-6.10); White Blood Count 6.75 K/ul (4.8-10.8)
[2024-08-26 06:14] LABS: Albumin Globulin Ratio 1.6 (0.9-2); Albumin Level 3.4 gm/dl (3.4-5.0); Bilirubin,Total 0.7 mg/dl (0.2-1.0); Calcium 8.9 mg/dl (8.6-10.3); Chol HDL Ratio 2.6 (0-5); Creatinine Clr Calc Pharmacy 69.8 ml/min; Est GFR (African American) 87.4 ml/min; Est GFR (Non-African American) 75.4 ml/min; Globulin 2.1 gm/dl (2.5-4.0); Phosphorus 2.6 mg/dl (2.5-4.9); Potassium 4.5 mmol/L (3.5-5.1); Total Protein 5.5 gm/dl (6.0-8.3)
[2024-08-26 06:27] LABS: Thyroid Stimulating Hormone 1.2 uIu/ml (0.300-4.500)
[2024-08-26 08:30] LABS: Estimated Average Glucose 117 mg/dl; Hemoglobin A1C 5.7 % (4.5-5.6)
[2024-08-26] MEDS: lisinopril 10 MG TAB PO SCH (09:49)
[2024-08-26] MEDS: CLOPIDOGREL BISULFATE 75 MG TAB PO SCH (09:49)
[2024-08-26] MEDS ORDERED: Nursing to Pharmacy Communication SCH (11:15)
--- NOTE | 2024-08-26 11:32 | Neurology Consultation ---
Date of Consultation August 26, 2024 Assessment & Plan (1) Stroke: (2) Vertebral basilar insufficiency: Plan 69-year-old male with a known history of vertebrobasilar occlusive disease, presenting with a probable ischemic stroke localizing to the left anterior maribel, or possibly the left cerebral hemisphere (left MEG[place] territory). He continues to exhibit mild weakness for the right leg and arm (greater for the leg). He has been taking Lipitor 40 mg/day as well as dual antiplatelet therapy, Plavix 75 mg/day and aspirin 81 mg/day. Would recommend MRI of the brain. Would continue with clopidogrel 75 mg/day. Should continue with aspirin 81 mg/day as well (patient indicates he has been taking daily baby aspirin as well). Could consider switching Plavix to Brilinta. However, I do not think there is any good evidence that the combination of Brilinta and aspirin is acuña perior specifically for secondary stroke risk reduction then Plavix and aspirin. Further, long-term dual antiplatelet therapy is not standard of care for secondary stroke risk reduction although given the extent of his vertebrobasilar disease, is appropriate in his case. Although his lipids look very good with atorvastatin 40 mg/day, given the extent of observed vertebrobasilar atherosclerotic occlusive disease, would recommend increasing his dosage to 80 mg/day. Would recommend an up-to-date transthoracic echo with bubble study. Consider ambulatory cardiac monitoring. May allow for permissive hypertension acutely, systolic blood pressure 140 to 160 mmHg. Further gradual reductions may be made if necessary as an outpatient. However, he may not tolerate "normalizing" his blood pressure given the extent of his vertebrobasilar disease. A reasonable outpatient blood pressure goal may be between 130 to 140 mmHg systolic. Consultations with PT/OT/speech therapy. Patient does not require additional outpatient neurology follow-up. Please call with any questions. History of Present Illness Reason for Consultation: stroke Requesting Physician: Kait Attending Physician: Benjamín Perez MD History of Present Illness The patient is a 69-year-old male who presented to the emergency department yesterday with a chief complaint of right-sided weakness. The weakness began the day prior, while shopping at [employer]. He noted that his right leg felt weak and heavy at that time. His symptoms temporarily improved, although recurred again later that afternoon. He continued to go about his day, woke up early the following morning and noted that his right arm and leg were weak. He did not experience any change in speech, vision, or vertigo. 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 He informs me he has been taking both aspirin 81 mg/day, Plavix, and atorvastatin. He was seen at [facility] in July 2022 for strokelike episode, an MRI was negative for acute process at that time. He had an up-to-date CT of the head including CTA of the head and neck co mpleted yesterday. No hemorrhage or acute process. There is chronic occlusion of the left vertebral artery, chronic occlusion of the distal intracranial right vertebral artery and proximal basilar artery. There is retrograde flow to the mid basilar. The carotid arteries in the neck are patent. I independently reviewed these images. Allergies Allergy/AdvReac Type Severity Reaction Status Date / Time No Known Allergies Allergy Verified 08/25/24 05:11 Home Medications Medication Instructions Recorded Confirmed Type atorvastatin 40 mg tablet (Lipitor) 40 mg PO HS 08/25/24 08/25/24 History clopidogrel 75 mg tablet (Plavix) 75 mg PO 1XD 08/25/24 08/25/24 History lisinopril 10 mg tablet (Zestril) 10 mg PO DAILY 08/25/24 08/25/24 History Patient History Medical History Vertebral basilar insufficiency Basilar artery stenosis Hypertension TIA (transient ischemic attack) Dizziness Cerebrovascular accident Vertebral artery stenosis Surgical History S/P AAA repair History of hernia repair Family History Mother , age 72 of complications of meningitis. 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 Other Information That Helps Us Care for You: No Feels Safe at Home: Yes Safety Concerns: Feels Safe At This Time Assistive Devices: Denture - Upper, Denture - Lower and Glasses Review of Systems Constitutional: no fever and no chills Eyes: no blind spots and no diplopia Ear, Nose, Mouth, Throat: no tinnitus and no hearing loss Respiratory: no cough and no dyspnea Cardiovascular: no chest pain and no palpitations Gastrointestinal: no nausea and no vomiting Genitourinary: no urinary incontinence Musculoskeletal: no myalgia Integumentary: no rash and no lesions Neurologic: as per Subjective / HPI and + localized weakness; no tremor(s), no syncope, no headache(s) and no confusion Psychiatric: no depression and no anxiety Hematologic / Lymphatic: no easy bleeding and no easy bruising Exam (Neuro) Constitutional: well developed and well nourished; no acute distress Eyes: normal visual chris by confrontation, PERRL and EOM intact bilaterally; no nystagmus Neurologic: Oriented to:: Person, Place and Time Memory: Short Term Intact and Remote Intact Attention: Span Intact and Concentration Intact Speech Fluency: negative Dysarthria or Dysfluency Speech Aphasia: negative Aphasia Fund of Knowledge: Current Events, Past History and Vocabulary Cranial Nerves: Normal II, III, IV, , V, VII, VIII, IX, X, XI and XII Motor Strength: Hemiparesis (Mild, leg greater than arm) Laterality: Right Motor Tone: Normal Lower Extremities and Normal Upper Extremities Muscle Bulk/Involuntary Movements: No Involuntary Movements; negative Muscle Atrophy Sensation: Light Touch Intact, Pain/Temperature Intact, Vibration Intact and Proprioception Intact Coordination: Normal, Finger-Nose Abnormal Laterality: Right and Heel-Olmedo Abnormal Laterality: Right; negative Limited Balance Deep Tendon Reflexes: Rt Triceps: 2+, Lt Triceps: 2+, Rt Biceps: 2+, Lt Biceps: 2+, Rt Brachioradialis: 2+, Lt Brachioradialis: 2+, Rt Patellar: 2+, Lt Patellar: 2+, Rt Ankle: 1+ and Lt Ankle: 1+ Special Tests: Babinski Present (right) Results & Data Vital Signs (Past 12 Hours) Vital Signs Temp Pulse Pulse Resp BP Pulse Ox O2 Del Method 08/26/24 08:49 36.6 C 60 18 150/80 H 96 Room Air 08/26/24 08:00 Room Air 08/26/24 07:00 57 L 08/26/24 03:14 36.5 C 62 16 122/74 98 Room Air Laboratory Results WBC 6.75, hemoglobin 14.3, hematocrit 44.2, MCV 92.3, platelet count 167, sodium 140, potassium 4.5, BUN 16, creatinine 1.00, glucose 107, hemoglobin A1c 5.7, calcium 8.9, magnesium 2.0, AST 20, ALT 18, high-sensitivity troponin 2.7, triglycerides 90, cholesterol 108, LDL 49, VLDL 18, HDL 41, TSH 1.[address] of the head including CTA of the head and neck are as described in the history of present illness, I independently reviewed these images. Electrocardiogram reveals sinus bradycardia with sinus arrhythmia, 54 bpm. An echocardiogram completed in July 2022 revealed a possible small PFO. Coding Level of Care Code 74946 INT INP/OBS CARE 3/75MIN Diagnoses Stroke I63.9 Vertebral basilar insufficiency G45.0 Time Spent (min) 90 Comment Total time includes patient contact, chart review, counseling, note preparation
--- NOTE | 2024-08-26 12:37 | Hospitalist Progress Note ---
Date of Service August 26, 2024 Assessment & Plan (1) Stroke: Plan: Presented with heaviness and weakness involving the right side extremities since Tuesday History of stroke without any sequela Symptoms are persisting since admission Has been on Plavix and baby aspirin as an outpatient Appreciate neurology input and recommendation to continue aspirin and Plavix and also increase the dose of statin to 80 mg a day Will get PT OT evaluation MRI of the brain and echo with bubble study Speech therapy consult advised as well Consider ambulatory cardiac monitoring (2) Vertebral basilar insufficiency: Plan: CTAs showed: 1. There is no hemorrhage, mass effect, or evidence of acute territorial ischemia by CT criteria. 2. Chronic occlusion of the left vertebral artery is similar to previous. This includes both the intracranial and extracranial portions. 3. There is chronic occlusion of the distal intracranial right vertebral artery as well as the proximal basilar artery. 4. The mid to distal basilar artery is opacified, likely via retrograde flow. Again seen is moderate to severe focal high-grade stenosis of the mid to distal basilar artery. 5. The remaining intracranial vessels are patent. 6. The right vertebral artery in the neck is patent. 7. The carotid arteries in the neck are patent with no evidence of hemodynamically significant stenosis. 8. Advanced emphysema. (3) Hypertension: Plan: Will have permissive hypertension (4) Stroke-like symptom: (5) Dyslipidemia: Plan: Has been on atorvastatin 40 mg Will increase the dose to 80 mg once a day given the atherosclerotic changes involving the multiple blood vessels in the neck and brain Plan Other significant medical conditions remained stable #COPD #Previous smoker -monitor IVF NPO until bedside swallow Home antiplatelets No PPI Admission and Anticipated Discharge Date Admission Date: August 25, 2024 Subjective 08/26/2024 The patient was seen and examined in medical telemetry unit He has been complaining of right-sided heaviness and also weakness since Tuesday History of vertebrobasilar insufficiency and stroke in the past Denies any problem with the speech and/or swallowing Symptoms remain stable and no new symptoms Review of Systems Review of Systems: All systems reviewed and are unremarkable except as noted below Physical Exam Physical Exam: Sitting at the edge of the bed without any acute distress Constitutional: well developed, well nourished, + ill appearing and average body habitus Eyes: PERRL, conjunctivae normal, anicteric sclerae ENMT: external ear and nose normal, oropharynx normal Neck: trachea midline, no thyromegaly Respiratory: no respiratory distress Auscultation: lungs clear to auscultation bilaterally Cardiovascular: Rate/Rhythm: regular rate and regular rhythm; not tachycardic Heart Sounds: normal S1 and normal S2; no murmur Extremities: no edema Gastrointestinal (Abdomen): Inspection/Auscultation: normal bowel sounds; abdomen not distended Percussion/Palpation: abdomen soft; abdomen nontender Musculoskeletal: No acute arthritis involving any of the joints Neurologic: + focal motor deficit (Minimal weakness involving the right side extremities); + abnormal touch/pain/proprioception (Impaired sensations involving the right sided extremities) Psychiatric: A+Ox3, euthymic affect Lymphatic: no cervical or axillary lymphadenopathy Results & Data Results & Data Vital Signs (Past 12 Hours) Vital Signs Temp Pulse Pulse Resp BP Pulse Ox O2 Del Method 08/26/24 12:10 36.3 C L 53 L 16 140/70 99 Room Air 08/26/24 08:49 36.6 C 60 18 150/80 H 96 Room Air 08/26/24 08:00 Room Air 08/26/24 07:00 57 L 08/26/24 03:14 36.5 C 62 16 122/74 98 Room Air Laboratory Results Short CBC 08/26/24 Range/Units 05:36 WBC 6.75 (4.8-10.8) K/ul Hgb 14.3 (14.0-18.0) g/dl Hct 44.2 (42.0-52.0) % Plt Count 167 (130-400) K/uL BMP 08/26/24 05:36 Sodium 140 Potassium 4.5 Chloride 110 H Carbon Dioxide 25 BUN 16 Creatinine 1.00 Glucose 107 H Calcium 8.9 Liver Function 08/26/24 Range/Units 05:36 Total Bilirubin 0.7 (0.2-1.0) mg/dl AST 20 (13-39) U/L ALT 18 (7-52) U/L Alkaline Phosphatase 61 (34-104) U/L Albumin 3.4 (3.4-5.0) gm/dl Urine 08/25/24 Range/Units 18:23 Urine Color Yellow Urine Appearance Clear (Clear) Urine pH 7.5 (4.5-7.5) Ur Specific [place] 1.017 (1.000-1.030) Urine Protein Negative (Negative) Urine Glucose (UA) Negative (Negative) Medications Administered Current Inpatient Medications Acetaminophen (Acetaminophen 325 Mg Tab) 650 mg PO Q4H PRN PRN Reason: pain/fever Stop: 09/24/24 11:25 Aspirin (Aspirin 81 Mg Ectab) [facility] Stop: 09/25/24 11:59 Atorvastatin Calcium (Atorvastatin 40 Mg Tab) 80 mg PO HS [facility] Stop: 09/25/24 20:59 Clopidogrel Bisulfate (Clopidogrel Bisulfate 75 Mg Tab) [facility] Stop: 09/25/24 08:59 Last Admin: 08/26/24 09:49 Dose: 75 mg Lisinopril (Lisinopril 10 Mg Tab) 10 mg PO DAILY [facility] Stop: 09/25/24 08:59 Last Admin: 08/26/24 09:49 Dose: 10 mg Melatonin (Melatonin 3 Mg Tab) 3 mg PO HS PRN PRN Reason: Insomnia Stop: 09/24/24 11:25 Polyethylene Glycol (Polyethylene (Miralax) 17 Gm Pack) 17 gm PO DAILY PRN PRN Reason: Constipation Stop: 09/24/24 23:32 Senna/Docusate Sodium (Docusate Sodium/Senna 50/8.6mg Tab) 1 tab PO [facility] Stop: 09/24/24 23:34 Last Admin: 08/26/24 09:49 Dose: 1 tab
[2024-08-26] MEDS: ASPIRIN 81 MG ECTAB PO SCH (12:40)
--- NOTE | 2024-08-26 15:41 | Magnetic Resonance Report ---
MRI OF THE BRAIN WITHOUT IV CONTRAST CLINICAL HISTORY: Strokelike symptoms. Right leg weakness. COMPARISON STUDY: CT and CT angiogram of the brain dated 08/25/2024. TECHNIQUE: MRI of the brain was performed utilizing various T1 and T2-weighted sequences in the axial , sagittal, and coronal planes. IV contrast was not administered for this examination. FINDINGS: Brain parenchyma: There is an 11 mm focus of restricted diffusion seen in the left posterior perivent ricular white matter on image #14. This is consistent with acute to subacute lacunar infarct. No sari tional foci of restricted diffusion are identified. There is no hemorrhage or mass effect. There is a ge related involutional change noting mild subcortical and periventricular microangiopathic disease. Epps-white matter differentiation is preserved. No extra-axial fluid collection is seen. The cerebell ar tonsils are normal in configuration. Ventricles, sulci, and cisterns: Prominent secondary to involutional change. Pituitary and sella: Unremarkable. Intracranial vasculature: The carotid artery flow voids are maintained at the skull base. There is lo ss of the left vertebral artery flow void and the proximal basilar flow void. This is better assessed on the recent CT angiogram. Orbits: The bony orbits are grossly intact. Orbital contents are normal in appearance. Sinuses and mastoids: There is trace mucosal thickening right maxillary antrum. Remaining paranasal s inuses and the mastoid air cells are clear. Calvarium: Unremarkable. Cervical cord: Partially visualized cervical spinal cord is normal in morphology and signal intensity . IMPRESSION: 1. There is an acute subacute lacunar infarct in the left posterior periventricular white matter as a jose. 2. No additional foci of restricted diffusion are identified. 3. There is no hemorrhage or mass effect. 4. There is loss of the left vertebral artery flow-void and the proximal basilar artery flow-void at the skull base. These vessels are occluded, and this was better shown on yesterday's CT angiograms. ACT 112: Negative or not required by law. Electronically signed by: Reggie Williamson M.D. 08/26/2024 3:39 PM
[2024-08-26 20:20] VITALS: RESP 18
[2024-08-26] MEDS: HEPARIN SOD 5,000 UNIT/0.5 ML VIAL SQ SCH (20:58)
[2024-08-26] MEDS: ATORVASTATIN 40 MG TAB PO SCH (20:58)
[2024-08-27 07:55] VITALS: BP 139/77; TEMP 97.3; O2SAT 98
[2024-08-27 09:44] VITALS: PULSE 62
--- NOTE | 2024-08-27 10:43 | Neurology Progress Note ---
Date of Service August 27, 2024 Assessment & Plan (1) Stroke: (2) Vertebral basilar insufficiency: Plan Patient has had a very small acute left periventricular stroke resulting in some right-sided weakness, leg greater than arm. There is no facial weakness and he has no other neurologic deficits. The patient has known vertebral basilar vascular disease with some old occlusions and basilar artery stenosis. MRI shows mild old small vessel ischemic disease and generalized atrophy only. Nevertheless, he is at great risk for stroke given his history of hypertension, dyslipidemia, former cigarette smoking, and his significant vertebrobasilar stenotic disease. Prior to admission, he was already on 81 mg aspirin tablet daily plus clopidogrel 75 mg daily (the chart states he was only on clopidogrel, but the patient states he was on both as an outpatient). He apparently has been to vascular surgeons in the past at [facility] who tell him there is not much they can do from a surgical standpoint to correct his stenoses. Recommendations: 1. For now, I would continue clopidogrel 75 mg daily +81 mg aspirin tablet daily. 2. Otherwise, we could discontinue clopidogrel and initiate Brilinta. Brilinta would be 180 mg loading dose then 90 mg twice daily. 81 mg aspirin daily could be given in addition to the Brilinta. I am not sure switching clopidogrel to Brilinta is necessarily advantageous (or a step up) but it would be something different and may work better to prevent stroke Whether or not we keep him the same or switch I think it is reasonable to have him see a stroke specialist at either [facility] or [facility] to talk about treatment options for this patient. 3. There is no indication for anticoagulation for his vertebral basilar stenoses. 4. Increase activity as able, continue physical and Occupational Therapy. 5. Given his total cholesterol of 108 and triglycerides of 90, I would not increase his atorvastatin to anything higher than what he was on as an outpatient. Doing so may risk increasing cerebral hemorrhage 6. Patient can be seen as an outpatient 2 to 3 weeks after discharge and neurology by one of our PAs (in addition to the stroke neurology consultation as an outpatient). Overall, I spent a total of 50 minutes with this case including review of records, review of MRI films, direct evaluation of the patient at bedside, and discussion of the case with the patient and RN at bedside, and Dr. Chris milner differential diagnosis and treatment options. Admission and Anticipated Discharge Date Admission Date: August 25, 2024 Subjective Patient has no complaint of pain or numbness. He feels that the weakness in his right arm is better. He still has some weakness of the right leg. He has no headache. CT angiography of the head and neck revealed an old left vertebral occlusion and an old distal right vertebral occlusion. There is mid to lower basilar artery stenosis which is old also. There is no significant stenosis in the carotid artery system bilaterally. MRI of the brain shows a very tiny left periventricular white matter acute stroke. There is some mild generalized atrophy and mild old small vessel ischemic disease. I reviewed these films Results & Data Vital Signs (Past 12 Hours) Vital Signs Temp Pulse Pulse Pulse Resp BP BP 08/27/24 09:41 36.3 C L 59 L 62 18 139/77 133/77 08/27/24 08:00 08/27/24 07:54 36.3 C L 59 L 18 139/77 08/27/24 07:00 75 08/27/24 03:38 36.4 C L 62 18 128/72 08/26/24 23:39 36.5 C 61 18 121/64 Pulse Ox O2 Del Method 08/27/24 09:41 98 08/27/24 08:00 Room Air 08/27/24 07:54 98 Room Air 08/27/24 07:00 08/27/24 03:38 97 Room Air 08/26/24 23:39 97 Room Air Exam (Neuro) Physical Exam: He is awake and alert. Speech is without aphasia or dysarthria. Mood and affect are normal and appropriate. Thought processes are intact to conversation Extraocular eye muscles are intact without nystagmus. There is no facial droop. Tongue is midline. With outstretched arms there is some very slight drift on the right compared to the left which is normal. There is no ataxia with finger-nose testing. There is clumsiness in the right hand compared to the left. Otherwise, both arms are 5/5 diffusely both proximally and distally. In the right lower extremity strength is 4/5 diffusely both proximally and distally. There is clumsiness in the right foot compared to the left. The left lower extremity is 5/5 diffusely. There are no abnormal involuntary movements noted. PG Care Time/CCT Total # of Minutes Spent Total Time Spent with Patient: Total time spent is greater than 50% in coordination of care (as documented) at patient's floor/unit and/or counseling patient: Coding Level of Care Code 14070 SUB INP/OBS CARE 350MIN Diagnoses Stroke I63.9 Vertebral basilar insufficiency G45.0 Time Spent (min) 50
--- NOTE | 2024-08-27 10:49 | Hospitalist Progress Note ---
Date of Service August 27, 2024 Assessment & Plan (1) Stroke: Plan: Presented with heaviness and weakness involving the right side extremities since Tuesday History of stroke without any sequela Symptoms are persisting since admission Has been on Plavix and baby aspirin as an outpatient Appreciate neurology input and recommendation to continue aspirin and Plavix and also increase the dose of statin to 80 mg a day Will get PT OT evaluation MRI of the brain and echo with bubble study Speech therapy consult advised as well Consider ambulatory cardiac monitoring Echo of the heart did not show any interatrial shunt. EF was 60 to 65% and no significant valvular heart disease He has had physical therapy and recommended home He will be discharged home this afternoon (2) Vertebral basilar insufficiency: Plan: CTAs showed: 1. There is no hemorrhage, mass effect, or evidence of acute territorial ischemia by CT criteria. 2. Chronic occlusion of the left vertebral artery is similar to previous. This includes both the intracranial and extracranial portions. 3. There is chronic occlusion of the distal intracranial right vertebral artery as well as the proximal basilar artery. 4. The mid to distal basilar artery is opacified, likely via retrograde flow. Again seen is moderate to severe focal high-grade stenosis of the mid to distal basilar artery. 5. The remaining intracranial vessels are patent. 6. The right vertebral artery in the neck is patent. 7. The carotid arteries in the neck are patent with no evidence of hemodynamically significant stenosis. 8. Advanced emphysema. (3) Hypertension: Plan: Will have permissive hypertension Blood pressure is well-controlled at 139/77 (4) Stroke-like symptom: (5) Dyslipidemia: Plan: Has been on atorvastatin 40 mg Will increase the dose to 80 mg once a day given the atherosclerotic changes involving the multiple blood vessels in the neck and brain Plan Other significant medical conditions remained stable #COPD #Previous smoker -monitor IVF NPO until bedside swallow Home antiplatelets on PPI Admission and Anticipated Discharge Date Admission Date: August 25, 2024 Subjective 08/26/2024 The patient was seen and examined in medical telemetry unit He has been complaining of right-sided heaviness and also weakness since Tuesday History of vertebrobasilar insufficiency and stroke in the past Denies any problem with the speech and/or swallowing Symptoms remain stable and no new symptoms 08/27/2024 The patient was seen and examined in medical telemetry unit His right-sided weakness has improved a little bit Has had physical therapy and did very well No other neurodeficit noted Review of Systems Review of Systems: All systems reviewed and are unremarkable except as noted below Neurologic: + gait abnormality, + unsteadiness, + lo calized weakness and + lack of coordination; no falls, no numbness, no paresthesia, no dizziness, no syncope, no headache(s) and no confusion Physical Exam Physical Exam: Sitting at the edge of the bed without any acute distress Constitutional: well developed, well nourished, + ill appearing and average body habitus Eyes: PERRL, conjunctivae normal, anicteric sclerae ENMT: external ear and nose normal, oropharynx normal Neck: trachea midline, no thyromegaly Respiratory: no respiratory distress Auscultation: lungs clear to auscultation bilaterally Cardiovascular: Rate/Rhythm: regular rate and regular rhythm; not tachycardic Heart Sounds: normal S1 and normal S2; no murmur Extremities: no edema Gastrointestinal (Abdomen): Inspection/Auscultation: normal bowel sounds; abdomen not distended Percussion/Palpation: abdomen soft; abdomen nontender Neurologic: + focal motor deficit (Minimal weakness involving the right side extremities); + abnormal touch/pain/proprioception (Impaired sensations involving the right sided extremities) Psychiatric: A+Ox3, euthymic affect Lymphatic: no cervical or axillary lymphadenopathy Results & Data Results & Data Vital Signs (Past 12 Hours) Vital Signs Temp Pulse Pulse Pulse Resp BP BP 08/27/24 09:41 36.3 C L 59 L 62 18 139/77 133/77 08/27/24 08:00 08/27/24 07:54 36.3 C L 59 L 18 139/77 08/27/24 07:00 75 08/27/24 03:38 36.4 C L 62 18 128/72 08/26/24 23:39 36.5 C 61 18 121/64 Pulse Ox O2 Del Method 08/27/24 09:41 98 08/27/24 08:00 Room Air 08/27/24 07:54 98 Room Air 08/27/24 07:00 08/27/24 03:38 97 Room Air 08/26/24 23:39 97 Room Air Medications Administered Current Inpatient Medications Acetaminophen (Acetaminophen 325 Mg Tab) 650 mg PO Q4H PRN PRN Reason: pain/fever Stop: 09/24/24 11:25 Aspirin (Aspirin 81 Mg Ectab) 81 mg PO QAM [facility] Stop: 09/25/24 11:59 Last Admin: 08/27/24 08:58 Dose: 81 mg Atorvastatin Calcium (Atorvastatin 40 Mg Tab) 80 mg PO HS [facility] Stop: 09/25/24 20:59 Last Admin: 08/26/24 20:58 Dose: 80 mg Clopidogrel Bisulfate (Clopidogrel Bisulfate 75 Mg Tab) 75 mg PO QAM [facility] Stop: 09/25/24 08:59 Last Admin: 08/27/24 08:57 Dose: 75 mg Heparin Sodium (Porcine) (Heparin Sod 5,000 Unit/0.5 Ml Vial) 5,000 units SQ Q12 [facility] Stop: 09/25/24 20:59 Last Admin: 08/27/24 08:58 Dose: Not Given Lisinopril (Lisinopril 10 Mg Tab) 10 mg PO DAILY [facility] Stop: 09/25/24 08:59 Last Admin: 08/27/24 08:58 Dose: 10 mg Melatonin (Melatonin 3 Mg Tab) 3 mg PO HS PRN PRN Reason: Insomnia Stop: 09/24/24 11:25 Polyethylene Glycol (Polyethylene (Miralax) 17 Gm Pack) 17 gm PO DAILY PRN PRN Reason: Constipation Stop: 09/24/24 23:32 Senna/Docusate Sodium (Docusate Sodium/Senna 50/8.6mg Tab) [facility] Stop: 09/24/24 23:34 Last Admin: 08/27/24 09:01 Dose: 1 tab
--- NOTE | 2024-08-28 07:45 | Discharge Summary ---
Date of Service August 28, 2024 Admission HPI Per Admitting Provider 69M pmh 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 Patient states that yesterday AM he first started to have RUE and RLE weakness as well as balance issues. These symptoms resolved but represented that PM, and again today AM, for which he presented to the ED. Currently his RUE weakness is resolved, but states that his RLE still feels weak. On exam strength and sensation and appropriate and equal between the LE, and the patient attributes his feelings of weakness to difficulty with balance. Of note patient has a long history of CVA/TIA, with previous diagnosis of bilateral vertebral artery occlusions for which intraarterial thrombectomy was attempted but failed due to patient's decomposition during surgery at [facility] in [place]. Previous symptoms also potentially attributed to basilar artery occlusion. Patient states these symptoms resemble his previous episodes of TIA/CVA, and confirms that he is currently on asa/plavix, not warfarin which was previously described in the medical record. Patient is unclear why he is not on warfarin, and has not seen or been following with a neurologist since his last major CVA. Admission Exam Per Admitting Provider Constitutional: WD/WN, vitals as above Cardiovascular: RRR, no murmur, no edema Neurologic: normal touch/pain/proprioception, CN's II-XI intact bilaterally, moves all extremities and awake; no focal motor deficits Motor/Sensory: normal movement and no sensory deficit Cranial Nerves: PERRL, EOM intact bilaterally, normal facial strength, tongue midline and able to elevate shoulders bilaterally some word finding difficulties which he states are chronic for him Psychiatric: A+Ox3, euthymic affect Principal Diagnosis Acute stroke, vertebrobasilar insufficiency Discharge Exam Sitting at the edge of the bed without any acute distress Constitutional well developed, well nourished, + ill appearing and average body habitus Eyes PERRL, conjunctivae normal, anicteric sclerae ENMT external ear and nose normal, oropharynx normal Neck trachea midline, no thyromegaly Respiratory no respiratory distress Auscultation: lungs clear to auscultation bilaterally Cardiovascular Rate/Rhythm: regular rate and regular rhythm; not tachycardic Heart Sounds: normal S1 and normal S2; no murmur Extremities: no edema Gastrointestinal (Abdomen) Inspection/Auscultation: normal bowel sounds; abdomen not distended Percussion/Palpation: abdomen soft; abdomen nontender Neurologic + focal motor deficit (Minimal weakness involving the right side extremities); + abnormal touch/pain/proprioception (Impaired sensations involving the right sided extremities) Psychiatric A+Ox3, euthymic affect Lymphatic no cervical or axillary lymphadenopathy Discharge Data Allergies Allergy/AdvReac Type Severity Reaction Status Date / Time No Known Allergies Allergy Verified 08/25/24 05:11 Consultations 08/25/24 09:10 ED Decision to Admit Stat 08/25/24 11:26 Consult Neurology Routine Ordered Studies 08/25/24 05:03 CT angio head w con Stat CT angio neck with con Stat CT head/brain wo con Stat 08/26/24 11:46 MRI Brain [MR brain wo con] Routine Hospital Course (1) Stroke: Presented with heaviness and weakness involving the right side extremities since Tuesday History of stroke without any sequela Symptoms are persisting since admission Has been on Plavix and baby aspirin as an outpatient Appreciate neurology input and recommendation to continue aspirin and Plavix and also increase the dose of statin to 80 mg a day Will get PT OT evaluation MRI of the brain and echo with bubble study Speech therapy consult advised as well Consider ambulatory cardiac monitoring Echo of the heart did not show any interatrial shunt. EF was 60 to 65% and no significant valvular heart disease He has had physical therapy and recommended home He will be discharged home this afternoon (2) Vertebral basilar insufficiency: CTAs showed: 1. There is no hemorrhage, mass effect, or evidence of acute territorial ischemia by CT criteria. 2. Chronic occlusion of the left vertebral artery is similar to previous. This includes both the intracranial and extracranial portions. 3. There is chronic occlusion of the distal intracranial right vertebral artery as well as the proximal basilar artery. 4. The mid to distal basilar artery is opacified, likely via retrograde flow. Again seen is moderate to severe focal high-grade stenosis of the mid to distal basilar artery. 5. The remaining intracranial vessels are patent. 6. The right vertebral artery in the neck is patent. 7. The carotid arteries in the neck are patent with no evidence of hemodynamically significant stenosis. 8. Advanced emphysema. (3) Hypertension: Will have permissive hypertension Blood pressure is well-controlled at 139/77 (4) Stroke-like symptom: (5) Dyslipidemia: Has been on atorvastatin 40 mg Will increase the dose to 80 mg once a day given the atherosclerotic changes involving the multiple blood vessels in the neck and brain Plan Other significant medical conditions remained stable #COPD #Previous smoker -monitor IVF NPO until bedside swallow Home antiplatelets on PPI Total Time Total Time Spent Total Time Spent (In Minutes): 40 minutes Discharge Plan Discharge Items Patient Disposition: Home - Self-Care Reason For Visit: TIA VA CVA Discharge Diagnosis: Acute stroke, vertebrobasilar insufficiency Condition on Discharge: Good Activity: Resume your previous activity Non-emergency contact: Primary Care Provider Call non-emergency contact if: you have any medication questions and your symptoms worsen Follow-up/Referrals: Jorge Araya D.O. [Primary Care Provider] - 08/29/24 9:20 am (with Dr Silva) Diet: Heart Healthy Addtl Attending Provider Instructions: Please take precautions to avoid falls No change in your medications Please keep appointments with the healthcare providers Will need a stroke neurology consultation as an outpatient Pending Studies at Discharge: No Stand-Alone Forms: My [facility] [employer], Smoking Cessation Medications and DC Order Prescriptions: New aspirin 81 mg Tablet,Delayed Release (Dr/Ec) 81 mg PO QAM Qty: 30 0RF Continued atorvastatin [Lipitor] 40 mg tablet 40 mg PO HS lisinopril [Zestril] 10 mg tablet 10 mg PO DAILY clopidogrel [Plavix] 75 mg tablet 75 mg PO 1XD Discharge Orders: Discharge Order (Routine); Ordered 08/27/24 Ordered By: Benjamín Bains/Other Patient Handouts: Anticoagulants, Stroke: Taking Medicines, Stro ke: Self-Care, Stroke Regaining Movement Admission Data Admit Date/Time: 08/25/24 09:55 Attending Provider: Benjamín Perez Admit Provider: Samson Carballo Primary Care Provider: Jorge Araya Other Providers: Samson Carballo; Richard Cash Other Interventions: Discharge Summary Assessment (RN) Last Done: 08/27/24 09:41
== END 2024-08-27 15:58 | disposition home or self-care (01) ==
LOC: EDINP 04:45 → ED 04:45 → SUATTDRO 09:55 → 2N 11:26